=== PATIENT | female | born 1955 | race African-American/Black ===

== ENCOUNTER 2016-10-30 15:08 | Outpatient (CLI) | payer MEDICARE | END 2016-10-30 15:09 | disposition home or self-care (01) | DX: E03.9 Hypothyroidism, unspecified (principal) ==

== ENCOUNTER 2017-08-19 21:10 | Outpatient (CLI) | payer MEDICARE ==
[2017-08-19 19:40] LABS: BASOPHILS % (AUTO) 0.8 %; EOSINOPHILS # (AUTO) 0.3 10^3/uL (0.0-0.7); EOSINOPHILS % (AUTO) 4.9 %; HCT - HEMATOCRIT 33.9 % (37.0-47.0); HGB - HEMOGLOBIN 11.3 g/dL (12.0-16.0); LYMPHOCYTES # (AUTO) 1.4 10^3/uL (1.5-3.5); LYMPHOCYTES % (AUTO) 26.5 %; MEAN CORPUSCULAR HEMOGLOBIN 29.1 pg (27.0-31.0); MEAN CORPUSCULAR HGB CONC 33.4 g/dL (32.0-36.0); MEAN CORPUSCULAR VOLUME 87.2 fL (81.0-99.0); MEAN PLATELET VOLUME 8.8 fL (7.9-10.8); MONOCYTES # (AUTO) 0.3 10^3/uL (0.0-1.0); MONOCYTES % (AUTO) 6.6 %; NEUTROPHILS # (AUTO) 3.2 10^3/uL (1.5-6.6); NEUTROPHILS % (AUTO) 61.2 %; RED BLOOD COUNT 3.89 10^6/uL (4.20-5.40); RED CELL DISTRIBUTION WIDTH 12.8 % (12.0-15.0); UNCORRECTED WHITE BLOOD COUNT 5.3 x10^3/uL; WHITE BLOOD COUNT 5.3 x10^3/uL (4.8-10.8)
[2017-08-19 20:01] LABS: ALBUMIN/GLOBULIN RATIO 1.1 (1.0-2.2); BILIRUBIN,TOTAL 0.5 mg/dL (0.2-1.0); BUN - BLOOD UREA NITROGEN 19 mg/dL (6-20); CALCIUM 9.4 mg/dL (8.5-10.3); CARBON DIOXIDE - CO2 25 mmol/L (21-32); CHLORIDE 103 mmol/L (101-111); CHOLESTEROL 173 mg/dL; CREATININE 0.9 mg/dL (0.4-1.0); GFR - MDRD 77 (>89); GLUCOSE 97 mg/dL (70-100); HDL CHOLESTEROL 57 mg/dL; LDL/HDL RATIO 1.5 (<4.4); POTASSIUM 3.8 mmol/L (3.5-5.0); SODIUM 133 mmol/L (135-145); TRIGLYCERIDES 149 mg/dL; VLDL CHOLESTEROL 30 mg/dL
[2017-08-19 20:08] LABS: THYROID STIMULATING HORMONE < 0.08 uIU/mL (0.34-5.60)
== END 2017-08-19 21:11 | disposition home or self-care (01) ==
LOC: LAB.N 21:10
PROVIDERS: ATTEND Nurse Practitioner Gerontology
DX: E66.9 Obesity, unspecified (principal); E03.9 Hypothyroidism, unspecified; E78.5 Hyperlipidemia, unspecified; Z72.89 Other problems related to lifestyle
CPT/HCPCS: 36415; 80053; 80061; 84439; 84443; 85025; 86803

== ENCOUNTER 2020-09-02 09:05 | Outpatient (CLI) | payer MEDICARE | END 2020-09-02 09:06 | disposition critical access hospital (66) | LOC: EMS 09:05 | PROVIDERS: ATTEND Surgery | DX: R29.818 Other symptoms and signs involving the nervous system (principal) | CPT/HCPCS: A0425; A0429 ==

== ENCOUNTER 2020-09-02 09:50 | Emergency (ER) | payer MEDICARE ==
[2020-09-02] MEDS ORDERED: HYDROCORTISONE SUCCINATE 100 MG/2 ML VIAL IVP STA (10:03)
[2020-09-02] MEDS ORDERED: SODIUM CHLORIDE 0.9% 1,000 ML IV STA (10:03)
--- NOTE | 2020-09-02 10:06 | ED Physician Documentation ---
History of Present Illness - Stated complaint Stated Complaint: WEAKNESS - History obtained from History obtained from: Patient, EMS - Additonal information Additional information: 65-year-old woman with chronic pain, lives alone with a visiting caregiver twice a week. She has a history of hypothyroidism and takes hydrocortisone, she says it is for pain I am not really sure what it is for. She states for the last week she has been generally weak and today sat down on the toilet to urinate and could not get back up due to weakness. She called for help and EMS was summoned. They noticed her to be moderately modestly hypoglycemic in the 60s and she was given oral sucrose prior to arrival. She denies increased pain, headache, shortness of breath, chest pain. No fevers. She admits that she is inconsistent with her hydrocortisone dosing and is not sure when she last took it, potentially a few days ago. She knows that she is supposed to take it 3 times a day but states she generally only takes it twice a day. Review of Systems Ten Systems: 10 systems reviewed and negative Constitutional: denies: Fever, Chills Ears: denies: Loss of hearing, Ear pain Nose: reports: Rhinorrhea / runny nose Cardiac: denies: Chest pain / pressure, Palpitations Respiratory: denies: Dyspnea, Cough GI: denies: Abdominal Pain, Nausea, Vomiting PD PAST MEDICAL HISTORY - Past Medical History Cardiovascular: High cholesterol Respiratory: None Endocrine/Autoimmune: HyPOthyroidism GI: Hemorrhoids : None HEENT: Other Psych: Depression, Anxiety Musculoskeletal: Chronic back pain Derm: None - Present Medications Home Medications: Ambulatory Orders Medication Instructions Recorded Confirmed Hydrocortisone [Cortef] 5 mg PO DAILY 09/02/20 09/02/20 Levothyroxine [Synthroid] 88 mcg PO DAILY 09/02/20 09/02/20 Mupirocin Calcium [Mupirocin] 1 gm LUIS A TID #3 cream..g. 09/02/20 - Allergies Allergies/Adverse Reactions: Allergies Allergy/AdvReac Type Severity Reaction Status Date / Time Sulfa (Sulfonamide Allergy Unknown Verified 09/02/20 10:08 Antibiotics) PD ED PE NORMAL - Vitals Vital signs reviewed: Yes - General General: No acute distress, Other (She is constantly sniffling and has a crusty lesion inside the right nares. Mildly dry mucous membranes. She is alert and oriented to person place time and events but seems very slightly confused.) - Neck Neck: Supple, no meningeal sign, No bony TTP - Cardiac Cardiac: RRR, No murmur - Respiratory Respiratory: No respiratory distress, Clear bilaterally - Abdomen Abdomen: Normal bowel sounds, Soft, Non tender - Back Back: No CVA TTP, No spinal TTP - Derm Derm: Normal color, Warm and dry - Extremities Extremities: No deformity, No tenderness to palpate, Normal ROM s pain, Other (She is just able to raise either leg off the bed but cannot hold it up for more than a second.) - Neuro Neuro: Alert and oriented X 3, No sensory deficit, Normal speech Eye Opening: Spontaneous Motor: Obeys Commands Results - Vitals Vitals: Vital Signs - 24 hr 09/02/20 09/02/20 09/02/20 10:02 10:29 11:28 Temperature 36.0 C L Heart Rate 117 H 115 H 107 H Respiratory 15 19 20 Rate Blood Pressure 117/81 H 118/57 L 116/92 H O2 Saturation 100 100 100 09/02/20 09/02/20 12:08 13:43 Temperature 36.2 C L Heart Rate 107 H 103 H Respiratory 22 18 Rate Blood Pressure 115/77 108/81 H O2 Saturation 99 99 Oxygen O2 Source Room air - EKG (time done) 1009 Rate: Rate (enter#) (120) Rhythm: Sinus tachycardia Kemp: RAD Intervals: Normal NM, Prolonged QT QRS: Normal Ischemia: Normal ST segments - Labs Labs: Laboratory Tests 09/02/20 09/02/20 09/02/20 10:02 10:40 10:40 WBC 5.4 RBC 4.61 Hgb 13.2 Hct 41.5 MCV 90.0 MCH 28.6 MCHC 31.8 L RDW 13.0 Plt Count Not Reportable MPV 9.6 Neut # (Auto) 3.6 Lymph # (Auto) 1.3 L Cabell # (Auto) 0.4 Eos # (Auto) 0.1 Baso # (Auto) 0.0 Absolute Nucleated RBC 0.00 Nucleated RBC % 0.0 Platelet Morphology PLATELET CLUMPING Sodium Potassium Chloride Carbon Dioxide Anion Gap BUN Creatinine Estimated GFR (MDRD) Glucose Calcium Magnesium Total Bilirubin AST ALT Alkaline Phosphatase Total Protein Albumin Globulin Albumin/Globulin Ratio Lipase Nasal Adenovirus (PCR) NOT DETECTED Nasal B. parapertussis DNA (PCR) NOT DETECTED Nasal Coronavir 229E PCR NOT DETECTED Nasal Coronavir HKU1 PCR NOT DETECTED Nasal Coronavir NL63 PCR NOT DETECTED Nasal Coronavir OC43 PCR NOT DETECTED Nasal Enterovir/Rhinovir PCR DETECTED A Nasal Influenza B PCR NOT DETECTED Nasal Influenza A PCR NOT DETECTED Nasal Parainfluen 1 PCR NOT DETECTED Nasal Parainfluen 2 PCR NOT DETECTED Nasal Parainfluen 3 PCR NOT DETECTED Nasal Parainfluen 4 PCR NOT DETECTED Nasal RSV (PCR) NOT DETECTED Nasal Screen MRSA (PCR) POSITIVE A* Nasal B.pertussis DNA PCR NOT DETECTED Nasal C.pneumoniae (PCR) NOT DETECTED Luis A Human Metapneumo PCR NOT DETECTED Nasal M.pneumoniae (PCR) NOT DETECTED Nasal SARS-CoV-2 (PCR) NOT DETECTED 09/02/20 11:10 WBC RBC Hgb Hct MCV MCH MCHC RDW Plt Count MPV Neut # (Auto) Lymph # (Auto) Cabell # (Auto) Eos # (Auto) Baso # (Auto) Absolute Nucleated RBC Nucleated RBC % Platelet Morphology Sodium 138 Potassium 3.6 Chloride 105 Carbon Dioxide 22 Anion Gap 11.0 BUN 18 Creatinine 0.9 Estimated GFR (MDRD) 77 L Glucose 147 H Calcium 9.9 Magnesium 1.9 Total Bilirubin 1.4 H AST 30 ALT 19 Alkaline Phosphatase 49 Total Protein 7.3 Albumin 4.0 Globulin 3.3 Albumin/Globulin Ratio 1.2 Lipase 18 L Nasal Adenovirus (PCR) Nasal B. parapertussis DNA (PCR) Nasal Coronavir 229E PCR Nasal Coronavir HKU1 PCR Nasal Coronavir NL63 PCR Nasal Coronavir OC43 PCR Nasal Enterovir/Rhinovir PCR Nasal Influenza B PCR Nasal Influenza A PCR Nasal Parainfluen 1 PCR Nasal Parainfluen 2 PCR Nasal Parainfluen 3 PCR Nasal Parainfluen 4 PCR Nasal RSV (PCR) Nasal Screen MRSA (PCR) Nasal B.pertussis DNA PCR Nasal C.pneumoniae (PCR) Luis A Human Metapneumo PCR Nasal M.pneumoniae (PCR) Nasal SARS-CoV-2 (PCR) PD MEDICAL DECISION MAKING - ED course ED course: She was difficult for phlebotomy, I personally did an ultrasound guided blood draw from the left antecubital fossa drawing her blood. It was quite slow, explaining the platelet clumping. Her lab work was unremarkable except for finding of rhinovirus and crust nose c/w MRSA. No evidence of other/systemic infection. 65-year-old woman presents with modest hypoglycemia and weakness in the setting of having skipped 2 days worth of her chronic hydrocortisone. She was administered IV fluids and hydrocortisone here with resolution of her symptoms and passed a road test. 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 Comments: As discussed, it is imperative not to skip doses of your hydrocortisone, it causes exactly be symptoms, dizziness, low blood sugar. Return as needed. Follow-up with your primary care physician. We did note incidentally for a Covid test that she do not have Covid but you do have enterovirus and MRSA in your nose which I am giving you the nasal cream for.
[2020-09-02] MEDS ORDERED: DEXTROSE 10% 1,000 ML IV STA (10:10)
[2020-09-02] MEDS ORDERED: DEXTROSE 10% 1,000 ML IV SCH (11:00)
--- NOTE | 2020-09-02 11:06 | XRAY Report ---
PROCEDURE: Chest 1 View X-Ray INDICATIONS: Weakness TECHNIQUE: One view of the chest was acquired. COMPARISON: None FINDINGS: Surgical changes and devices: None. Lungs and pleura: No pleural effusions or pneumothorax. Lungs are clear. Mediastinum: Mediastinal contours appear normal. Heart size is normal. Bones and chest wall: No suspicious bony lesions. Overlying soft tissues appear unremarkable. IMPRESSION: No acute cardiopulmonary process demonstrated radiographically. Reviewed by: Oscar Muro MD on 09/02/2020 10:04 AM [facility] Approved by: Oscar Muro MD on 09/02/2020 10:04 AM [facility] Station ID: [id number]
[2020-09-02 11:18] LABS: BASOPHILS % (AUTO) 0.4 %; EOSINOPHILS # (AUTO) 0.1 10^3/uL (0.0-0.7); HGB - HEMOGLOBIN 13.2 g/dL (12.0-16.0); LYMPHOCYTES # (AUTO) 1.3 10^3/uL (1.5-3.5); LYMPHOCYTES % (AUTO) 24.8 %; MEAN CORPUSCULAR HEMOGLOBIN 28.6 pg (27.0-31.0); MEAN CORPUSCULAR HGB CONC 31.8 g/dL (32.0-36.0); MEAN PLATELET VOLUME 9.6 fL (7.9-10.8); MONOCYTES # (AUTO) 0.4 10^3/uL (0.0-1.0); MONOCYTES % (AUTO) 6.5 %; NEUTROPHILS # (AUTO) 3.6 10^3/uL (1.5-6.6); NEUTROPHILS % (AUTO) 65.9 %; RED BLOOD COUNT 4.61 10^6/uL (4.20-5.40); WHITE BLOOD COUNT 5.4 x10^3/uL (4.8-10.8)
[2020-09-02 11:32] LABS: ALBUMIN/GLOBULIN RATIO 1.2 (1.0-2.2); BILIRUBIN,TOTAL 1.4 mg/dL (0.2-1.0); CALCIUM 9.9 mg/dL (8.5-10.3); CREATININE 0.9 mg/dL (0.4-1.0); MAGNESIUM 1.9 mg/dL (1.7-2.8); TOTAL PROTEIN 7.3 g/dL (6.7-8.2)
[2020-09-02 11:39] LABS: PLATELET MORPHOLOGY PLATELET CLUMPING (NORMAL)
[2020-09-02 12:02] LABS: C. PNEUMONIAE- RESP PCR PANEL NOT DETECTED
[2020-09-02 14:07] VITALS: BP 100/76
[2020-09-02 15:08] LABS: GLUCOSE, URINE (UA) NEGATIVE (NEGATIVE); KETONES,URINE (UA) 15 mg/dL (NEGATIVE); LEUKOCYTE ESTERASE, URINE TRACE (NEGATIVE); NITRITE,URINE NEGATIVE (NEGATIVE); OCCULT BLOOD,URINE LARGE (NEGATIVE); PROTEIN,URINE TRACE mg/dL (NEGATIVE); UROBILINOGEN,URINE 2 E.U./dL (NORMAL)
[2020-09-02 15:11] LABS: CLARITY,URINE CLEAR (CLEAR)
[2020-09-02 15:12] LABS: BILIRUBIN,URINE NEGATIVE (NEGATIVE); ICTOTEST,URINE NEGATIVE
[2020-09-02 15:23] LABS: AMORPHOUS SEDIMENT,UR Moderate /LPF; BACTERIA,URINE None Seen /HPF (None Seen); RBC,URINE 0-5 /HPF (0-5); SQUAMOUS EPITHELIAL CELL,UR NONE SEEN (<= Few)
== END 2020-09-02 15:59 | disposition home or self-care (01) ==
LOC: EDUNIT# → ED 09:50
DX: E16.2 Hypoglycemia, unspecified (principal); R53.1 Weakness; T38.0X6A Underdosing of glucocorticoids and synthetic analogues, initial encounter; Z91.138 Patient's unintentional underdosing of medication regimen for other reason; J00 Acute nasopharyngitis [common cold]; B95.62 Methicillin resistant Staphylococcus aureus infection as the cause of diseases classified elsewhere; B97.89 Other viral agents as the cause of diseases classified elsewhere; Z20.828 Contact with and (suspected) exposure to other viral communicable diseases; R00.0 Tachycardia, unspecified; E03.9 Hypothyroidism, unspecified; G89.29 Other chronic pain; M54.9 Dorsalgia, unspecified
CPT/HCPCS: 0202U; 80053; 81001; 81003; 82803; 83605; 83690; 83735; 85025; 85610; 87040; 87086; 87640; 93005; 96361; 96374; 99284

== ENCOUNTER 2023-02-16 13:47 | Outpatient (CLI) | payer MEDICARE | END 2023-02-16 13:48 | disposition home or self-care (01) | LOC: LAB 13:47 | PROVIDERS: ATTEND Internal Medicine Endocrinology, Diabetes & Metabolism | DX: E03.8 Other specified hypothyroidism (principal) | CPT/HCPCS: 36415; 84439 ==

== ENCOUNTER 2023-05-18 15:23 | Outpatient (CLI) | payer MEDICARE | END 2023-05-18 23:59 | disposition critical access hospital (66) | LOC: EMS 15:23 | DX: R41.82 Altered mental status, unspecified (principal); R50.9 Fever, unspecified | CPT/HCPCS: A0425; A0429 ==

== ENCOUNTER 2023-05-18 15:41 | Inpatient (IN) | payer MEDICARE ==
[2023-05-18] MEDS ORDERED: ACETAMINOPHEN 650 MG SUPP PR STA (15:46)
[2023-05-18] MEDS ORDERED: SODIUM CHLORIDE 0.9% 1,000 ML IV STA ×2 (15:46→17:24)
--- NOTE | 2023-05-18 16:02 | ED Physician Documentation ---
History of Present Illness - Stated complaint Stated Complaint: AMS/FEVER - History obtained from History obtained from: EMS - Additonal information Additional information: Patient is a 68-year-old female with a history of a pituitary macroadenoma status post transsphenoidal resection in 2011 with secondary adrenal insufficiency and hypothyroidism presenting for evaluation of altered mental status and fever. Patient was last spoken to by a family friend yesterday morning and appeared to be at her usual self. Family been trying to reach her today but were unable to. EMS was then called and found her to be minimally responsive lying in her bed with smell of urine. She was found to be febrile. She is reportedly normally ambulatory and conversant and able to care for herself. She is only able to answer what her name is. History is limited as patient is not able to provide any history. She is supposed to be on hydrocortisone and thyroid medication. She follows with neurosurgery at the [facility]. Review of Systems Unable to obtain: AMS PD PAST MEDICAL HISTORY - Past Medical History Cardiovascular: High cholesterol Respiratory: None Endocrine/Autoimmune: HyPOthyroidism GI: Hemorrhoids : None HEENT: Other Psych: Depression, Anxiety Musculoskeletal: Chronic back pain Derm: None - Past Surgical History Past Surgical History: Yes - Present Medications Home Medications: Ambulatory Orders Medication Instructions Recorded Confirmed Hydrocortisone [Cortef] 5 mg PO DAILY 09/02/20 09/02/20 Levothyroxine [Synthroid] 88 mcg PO DAILY 09/02/20 09/02/20 Mupirocin Calcium [Mupirocin] 1 gm LUIS A TID #3 cream..g. 09/02/20 - Allergies Allergies/Adverse Reactions: Allergies Allergy/AdvReac Type Severity Reaction Status Date / Time Sulfa (Sulfonamide Allergy Unknown Verified 09/02/20 10:08 Antibiotics) - Social History Does the pt smoke?: No Smoking Status: Never smoker Does the pt drink ETOH?: No Does the pt have substance abuse?: No - Immunizations Immunizations are current?: Yes - POLST Patient has POLST: No PD ED PE NORMAL - General General: No acute distress, Well developed/nourished. No: Alert and oriented X 3 (Alert and oriented to person only) - HEENT HEENT: Atraumatic, PERRL - Neck Neck: Supple, no meningeal sign - Cardiac Cardiac: Other (Tachycardic, regular rhythm) - Respiratory Respiratory: No respiratory distress, Clear bilaterally - Abdomen Abdomen: Normal bowel sounds, Soft, Non tender, Non distended - Derm Derm: Warm and dry - Extremities Extremities: No deformity - Neuro Neuro: No motor deficit, Normal speech. No: Alert and oriented X 3 (Alert and oriented to person only) Eye Opening: Spontaneous Motor: Obeys Commands Verbal: Confused GCS Score: 14 Results - Vitals Vitals: Vital Signs - 24 hr 05/18/23 05/18/23 05/18/23 16:00 17:11 20:13 Temperature 39.0 C H 39.0 C H 37.6 C Heart Rate 123 H 119 H Respiratory 26 H 21 Rate Blood Pressure 118/84 H 130/81 H O2 Saturation 100 100 05/18/23 05/18/23 05/18/23 20:40 21:00 21:30 Temperature Heart Rate 110 H 105 H 100 Respiratory 23 15 15 Rate Blood Pressure 148/74 H 117/66 103/69 O2 Saturation 97 96 96 05/18/23 05/18/23 05/18/23 22:00 22:30 23:00 Temperature Heart Rate 97 99 93 Respiratory 173 H 15 17 Rate Blood Pressure 114/65 115/81 H 113/72 O2 Saturation 97 96 95 05/18/23 05/19/23 05/19/23 23:30 00:00 00:30 Temperature Heart Rate 92 97 93 Respiratory 11 L 22 19 Rate Blood Pressure 88/56 L 97/57 L 114/72 O2 Saturation 95 98 93 05/19/23 05/19/23 05/19/23 01:30 02:00 02:30 Temperature Heart Rate 82 83 79 Respiratory 12 16 16 Rate Blood Pressure 114/73 92/57 L 114/70 O2 Saturation 99 96 99 05/19/23 05/19/23 05/19/23 03:30 04:00 04:30 Temperature Heart Rate 87 80 84 Respiratory 24 16 16 Rate Blood Pressure 113/84 H 131/79 H 121/65 O2 Saturation 100 100 100 05/19/23 05/19/23 05:00 06:00 Temperature Heart Rate 84 87 Respiratory 16 16 Rate Blood Pressure 122/78 95/71 O2 Saturation 97 95 Oxygen O2 Source Room air - EKG (time done) 1702 EKG releavant findings:: EKG personally interpreted by author of this note. Relevant findings are: Rate 124, sinus tachycardia, significant motion artifact in numerous leads - Labs Labs: Laboratory Tests 05/18/23 05/18/23 05/18/23 16:40 16:40 16:40 WBC 7.6 RBC 4.67 Hgb 13.3 Hct 40.5 MCV 86.7 MCH 28.5 MCHC 32.8 RDW 13.2 Plt Count 161 MPV 9.6 Neut # (Auto) 5.7 Lymph # (Auto) 1.2 L Eddy # (Auto) 0.7 Eos # (Auto) 0.0 Baso # (Auto) 0.0 Absolute Nucleated RBC 0.00 Nucleated RBC % 0.0 Sodium 132 L Potassium 3.9 Chloride 97 L Carbon Dioxide 25 Anion Gap 10.0 BUN 19 Creatinine 1.1 Estimated GFR (MDRD) 60 L Glucose 102 Lactic Acid Calcium 9.7 Total Bilirubin 0.9 AST 48 H ALT 28 Alkaline Phosphatase 71 Total Creatine Kinase Troponin I High Sens 226.2 H* Total Protein 7.4 Albumin 4.1 Globulin 3.3 Albumin/Globulin Ratio 1.2 Lipase 11 TSH < 0.01 L Free T4 Direct 1.35 Urine Color Urine Clarity Urine pH Ur Specific Fillmore Urine Protein Urine Glucose (UA) Urine Ketones Urine Occult Blood Urine Nitrite Urine Bilirubin Urine Urobilinogen Ur Leukocyte Esterase Urine RBC Urine WBC Ur Squamous Epith Cells Amorphous Sediment Urine Bacteria Urine Casts Ur Microscopic Review Urine Culture Comments Nasal Adenovirus (PCR) Nasal B. parapertussis DNA (PCR) Nasal Coronavir 229E PCR Nasal Coronavir HKU1 PCR Nasal Coronavir NL63 PCR Nasal Coronavir OC43 PCR Nasal Enterovir/Rhinovir PCR Nasal Influenza B PCR Nasal Influenza A PCR Nasal Parainfluen 1 PCR Nasal Parainfluen 2 PCR Nasal Parainfluen 3 PCR Nasal Parainfluen 4 PCR Nasal RSV (PCR) Nasal B.pertussis DNA PCR Nasal C.pneumoniae (PCR) Luis A Human Metapneumo PCR Nasal M.pneumoniae (PCR) Nasal SARS-CoV-2 (PCR) Urine Opiates Screen Ur Oxycodone Screen Urine Methadone Screen Ur Propoxyphene Screen Ur Barbiturates Screen Ur Tricyclics Screen Ur Phencyclidine Scrn Ur Amphetamine Screen U Methamphetamines Scrn U Benzodiazepines Scrn Urine Cocaine Screen U Cannabinoids Screen Ethyl Alcohol < 10.0 05/18/23 05/18/23 05/18/23 16:40 16:40 16:45 WBC RBC Hgb Hct MCV MCH MCHC RDW Plt Count MPV Neut # (Auto) Lymph # (Auto) Eddy # (Auto) Eos # (Auto) Baso # (Auto) Absolute Nucleated RBC Nucleated RBC % Sodium Potassium Chloride Carbon Dioxide Anion Gap BUN Creatinine Estimated GFR (MDRD) Glucose Lactic Acid 1.7 Calcium Total Bilirubin AST ALT Alkaline Phosphatase Total Creatine Kinase 1359 H* Troponin I High Sens Total Protein Albumin Globulin Albumin/Globulin Ratio Lipase TSH Free T4 Direct Urine Color DARK YELLOW Urine Clarity HAZY Urine pH 5.0 Ur Specific [place]more >=1.030 H Urine Protein 30 H Urine Glucose (UA) NEGATIVE Urine Ketones 15 H Urine Occult Blood LARGE H Urine Nitrite NEGATIVE Urine Bilirubin NEGATIVE Urine Urobilinogen 1 (NORMAL) Ur Leukocyte Esterase NEGATIVE Urine RBC 6-10 H Urine WBC 0-3 Ur Squamous Epith Cells FEW Squamous Amorphous Sediment Few Urine Bacteria Few Urine Casts 0-2 Fine Granular Ur Microscopic Review INDICATED Urine Culture Comments NOT INDICATED Nasal Adenovirus (PCR) Nasal B. parapertussis DNA (PCR) Nasal Coronavir 229E PCR Nasal Coronavir HKU1 PCR Nasal Coronavir NL63 PCR Nasal Coronavir OC43 PCR Nasal Enterovir/Rhinovir PCR Nasal Influenza B PCR Nasal Influenza A PCR Nasal Parainfluen 1 PCR Nasal Parainfluen 2 PCR Nasal Parainfluen 3 PCR Nasal Parainfluen 4 PCR Nasal RSV (PCR) Nasal B.pertussis DNA PCR Nasal C.pneumoniae (PCR) Luis A Human Metapneumo PCR Nasal M.pneumoniae (PCR) Nasal SARS-CoV-2 (PCR) Urine Opiates Screen Ur Oxycodone Screen Urine Methadone Screen Ur Propoxyphene Screen Ur Barbiturates Screen Ur Tricyclics Screen Ur Phencyclidine Scrn Ur Amphetamine Screen U Methamphetamines Scrn U Benzodiazepines Scrn Urine Cocaine Screen U Cannabinoids Screen Ethyl Alcohol 05/18/23 05/18/23 05/18/23 16:45 17:14 18:15 WBC RBC Hgb Hct MCV MCH MCHC RDW Plt Count MPV Neut # (Auto) Lymph # (Auto) Eddy # (Auto) Eos # (Auto) Baso # (Auto) Absolute Nucleated RBC Nucleated RBC % Sodium Potassium Chloride Carbon Dioxide Anion Gap BUN Creatinine Estimated GFR (MDRD) Glucose Lactic Acid Calcium Total Bilirubin AST ALT Alkaline Phosphatase Total Creatine Kinase Troponin I High Sens 322.6 H* Total Protein Albumin Globulin Albumin/Globulin Ratio Lipase TSH Free T4 Direct Urine Color Urine Clarity Urine pH Ur Specific [place] Urine Protein Urine Glucose (UA) Urine Ketones Urine Occult Blood Urine Nitrite Urine Bilirubin Urine Urobilinogen Ur Leukocyte Esterase Urine RBC Urine WBC Ur Squamous Epith Cells Amorphous Sediment Urine Bacteria Urine Casts Ur Microscopic Review Urine Culture Comments Nasal Adenovirus (PCR) NOT DETECTED Nasal B. parapertussis DNA (PCR) NOT DETECTED Nasal Coronavir 229E PCR NOT DETECTED Nasal Coronavir HKU1 PCR NOT DETECTED Nasal Coronavir NL63 PCR NOT DETECTED Nasal Coronavir OC43 PCR NOT DETECTED Nasal Enterovir/Rhinovir PCR NOT DETECTED Nasal Influenza B PCR NOT DETECTED Nasal Influenza A PCR NOT DETECTED Nasal Parainfluen 1 PCR NOT DETECTED Nasal Parainfluen 2 PCR NOT DETECTED Nasal Parainfluen 3 PCR NOT DETECTED Nasal Parainfluen 4 PCR NOT DETECTED Nasal RSV (PCR) NOT DETECTED Nasal B.pertussis DNA PCR NOT DETECTED Nasal C.pneumoniae (PCR) NOT DETECTED Luis A Human Metapneumo PCR NOT DETECTED Nasal M.pneumoniae (PCR) NOT DETECTED Nasal SARS-CoV-2 (PCR) DETECTED A Urine Opiates Screen NEGATIVE Ur Oxycodone Screen NEGATIVE Urine Methadone Screen NEGATIVE Ur Propoxyphene Screen NEGATIVE Ur Barbiturates Screen NEGATIVE Ur Tricyclics Screen NEGATIVE Ur Phencyclidine Scrn NEGATIVE Ur Amphetamine Screen NEGATIVE U Methamphetamines Scrn NEGATIVE U Benzodiazepines Scrn NEGATIVE Urine Cocaine Screen NEGATIVE U Cannabinoids Screen NEGATIVE Ethyl Alcohol 05/18/23 21:27 WBC RBC Hgb Hct MCV MCH MCHC RDW Plt Count MPV Neut # (Auto) Lymph # (Auto) Eddy # (Auto) Eos # (Auto) Baso # (Auto) Absolute Nucleated RBC Nucleated RBC % Sodium Potassium Chloride Carbon Dioxide Anion Gap BUN Creatinine Estimated GFR (MDRD) Glucose Lactic Acid Calcium Total Bilirubin AST ALT Alkaline Phosphatase Total Creatine Kinase Troponin I High Sens 549.9 H* Total Protein Albumin Globulin Albumin/Globulin Ratio Lipase TSH Free T4 Direct Urine Color Urine Clarity Urine pH Ur Specific [place] Urine Protein Urine Glucose (UA) Urine Ketones Urine Occult Blood Urine Nitrite Urine Bilirubin Urine Urobilinogen Ur Leukocyte Esterase Urine RBC Urine WBC Ur Squamous Epith Cells Amorphous Sediment Urine Bacteria Urine Casts Ur Microscopic Review Urine Culture Comments Nasal Adenovirus (PCR) Nasal B. parapertussis DNA (PCR) Nasal Coronavir 229E PCR Nasal Coronavir HKU1 PCR Nasal Coronavir NL63 PCR Nasal Coronavir OC43 PCR Nasal Enterovir/Rhinovir PCR Nasal Influenza B PCR Nasal Influenza A PCR Nasal Parainfluen 1 PCR Nasal Parainfluen 2 PCR Nasal Parainfluen 3 PCR Nasal Parainfluen 4 PCR Nasal RSV (PCR) Nasal B.pertussis DNA PCR Nasal C.pneumoniae (PCR) Luis A Human Metapneumo PCR Nasal M.pneumoniae (PCR) Nasal SARS-CoV-2 (PCR) Urine Opiates Screen Ur Oxycodone Screen Urine Methadone Screen Ur Propoxyphene Screen Ur Barbiturates Screen Ur Tricyclics Screen Ur Phencyclidine Scrn Ur Amphetamine Screen U Methamphetamines Scrn U Benzodiazepines Scrn Urine Cocaine Screen U Cannabinoids Screen Ethyl Alcohol Procedures - Central Line - Major Central Line Preparation: Unable to obtain consent, Time out completed, Ultrasound used, Sterile prep and drape Central line location: Right Femoral Central line type: Triple lumen Central line aftercare: Chlorhexidine disc placed, Secured, Placement confirmed, No complications, Pt tolerated well PD Medical Decision Making - ED course Complexity details: reviewed results, re-evaluated patient ED course: Patient is a 68-year-old female with a history of a brain mass, adrenal insufficiency and hypothyroidism presenting with altered mental status and found to have a fever after being found at home. She was last seen more than 24 hours ago at her baseline. She last had contact with anyone yesterday. Patient is not able to provide any meaningful history. She is able to answer her name and identify caregiver in the room and is following commands and appears to be protecting her airway. Labs ordered for evaluation of altered mental status including CBC, chemistry, lactic, TSH, urine analysis, urine drug screen, troponin, respiratory swab. Chest x-ray which I reviewed is negative. Labs are significant for positive COVID status, elevated troponin. EKG is difficult to interpret on initial attempt as there is significant artifact.Elevated troponin could be demand ischemia related to fever, increased heart rate, sepsis and a repeat was obtained which is continue to increase a substantial amount.CT head shows a known pituitary mass that does not appear to be significantly changed from prior scans available through the [facility] system. CT abdomen and pelvis is pending and was ordered to evaluate for other possible causes of fever and altered mental status. Pt signed out at shift change to oncoming provider. CT A/P pending. Plan for transfer given rising troponins with unclear history. Pt was given 100mg Hydrocortisone for adrenal insufficiency. 1830 - Patient is slightly more responsive. She is able to recognize her caregiver July who is at the bedside and able to state her name. Departure - Departure Disposition: 02 Transfer Acute Care Hosp Clinical Impression: Altered mental status, Fever, COVID-19, History of adrenal insufficiency, Rhabdomyolysis, NSTEMI (non-ST elevated myocardial infarction), Pituitary adenoma Condition: Fair Forms: PCP List
[2023-05-18 16:56] LABS: BASOPHILS % (AUTO) 0.5 %; EOSINOPHILS % (AUTO) 0.1 %; HCT - HEMATOCRIT 40.5 % (37.0-47.0); HGB - HEMOGLOBIN 13.3 g/dL (12.0-16.0); LYMPHOCYTES # (AUTO) 1.2 10^3/uL (1.5-3.5); LYMPHOCYTES % (AUTO) 15.7 %; MEAN CORPUSCULAR HEMOGLOBIN 28.5 pg (27.0-31.0); MEAN CORPUSCULAR HGB CONC 32.8 g/dL (32.0-36.0); MEAN CORPUSCULAR VOLUME 86.7 fL (81.0-99.0); MEAN PLATELET VOLUME 9.6 fL (7.9-10.8); MONOCYTES # (AUTO) 0.7 10^3/uL (0.0-1.0); MONOCYTES % (AUTO) 8.9 %; NEUTROPHILS # (AUTO) 5.7 10^3/uL (1.5-6.6); NEUTROPHILS % (AUTO) 74.4 %; PLT - PLATELET COUNT 161 10^3/uL (130-450); RED BLOOD COUNT 4.67 10^6/uL (4.20-5.40); RED CELL DISTRIBUTION WIDTH 13.2 % (12.0-15.0); WHITE BLOOD COUNT 7.6 x10^3/uL (4.8-10.8)
[2023-05-18 17:06] LABS: MUDS CUTOFF CONCENTRATIONS CUTOFF CONC BELOW:
[2023-05-18 17:09] LABS: ALBUMIN 4.1 g/dL (3.2-5.5); ALBUMIN/GLOBULIN RATIO 1.2 (1.0-2.2); ALKALINE PHOSPHATASE 71 IU/L (42-121); ALT ALANINE AMINOTRANSFERASE 28 IU/L (10-60); AST ASPARTATE AMINOTRANSFERASE 48 IU/L (10-42); BILIRUBIN,TOTAL 0.9 mg/dL (0.2-1.0); BUN - BLOOD UREA NITROGEN 19 mg/dL (6-20); CALCIUM 9.7 mg/dL (8.5-10.3); CARBON DIOXIDE - CO2 25 mmol/L (21-32); CHLORIDE 97 mmol/L (101-111); CREATININE 1.1 mg/dL (0.6-1.3); ETOH - ETHANOL < 10.0 mg/dL; GFR - MDRD 60 (>89); GLUCOSE 102 mg/dL (74-104); LIPASE 11 U/L (11-82); POTASSIUM 3.9 mmol/L (3.5-4.5); SODIUM 132 mmol/L (135-145); TOTAL PROTEIN 7.4 g/dL (6.4-8.9)
[2023-05-18 17:13] LABS: GLUCOSE, URINE (UA) NEGATIVE (NEGATIVE); KETONES,URINE (UA) 15 mg/dL (NEGATIVE); LEUKOCYTE ESTERASE, URINE NEGATIVE (NEGATIVE); NITRITE,URINE NEGATIVE (NEGATIVE); OCCULT BLOOD,URINE LARGE (NEGATIVE); PROTEIN,URINE 30 mg/dL (NEGATIVE); UROBILINOGEN,URINE 1 (NORMAL) E.U./dL (NORMAL)
[2023-05-18 17:18] LABS: BILIRUBIN,URINE NEGATIVE (NEGATIVE); CLARITY,URINE HAZY (CLEAR); ICTOTEST,URINE NEGATIVE
[2023-05-18 17:24] LABS: THYROID STIMULATING HORMONE < 0.01 uIU/mL (0.34-5.60)
[2023-05-18 17:24] LABS: AMPHETAMINE SCREEN,URINE NEGATIVE (NEGATIVE); BARBITURATE SCREEN,UR NEGATIVE (NEGATIVE); BENZODIAZEPINES SCREEN, URINE NEGATIVE (NEGATIVE); COCAINE SCREEN URINE NEGATIVE (NEGATIVE); METHADONE SCREEN, URINE NEGATIVE (NEGATIVE); METHAMPHETAMINES SCREEN, URINE NEGATIVE (NEGATIVE); OPIATE SCREEN, URINE NEGATIVE (NEGATIVE); OXYCODONE SCREEN, URINE NEGATIVE (NEGATIVE); PROPOXYPHENE SCREEN, URINE NEGATIVE (NEGATIVE); THC CANNABINOID SCREEN, URINE NEGATIVE (NEGATIVE); TRICYCLIC ANTIDEPRESSANT,URINE NEGATIVE (NEGATIVE)
[2023-05-18 17:28] LABS: WBC,URINE 0-3 /HPF (0-5)
[2023-05-18 17:29] LABS: AMORPHOUS SEDIMENT,UR Few /LPF; BACTERIA,URINE Few /HPF (None Seen); CASTS, URINE 0-2 Fine Granular /LPF; SQUAMOUS EPITHELIAL CELL,UR FEW Squamous (<= Few)
--- NOTE | 2023-05-18 17:47 | XRAY Report ---
PROCEDURE: Chest 1 View X-Ray INDICATIONS: AMS/fever TECHNIQUE: One view of the chest was acquired. COMPARISON: Chest radiograph 09/02/2020. FINDINGS: Surgical changes and devices: None. Lungs and pleura: No pleural effusions or pneumothorax. Lungs are clear. Mediastinum: Mediastinal contours appear normal. Heart size is normal. Bones and chest wall: No suspicious bony lesions. Overlying soft tissues appear unremarkable. IMPRESSION: No acute cardiopulmonary process. Reviewed by: Charlee Salomon MD on 05/18/2023 5:46 PM PDT Approved by: Charlee Salomon MD on 05/18/2023 5:46 PM PDT Station ID: [id number]
[2023-05-18] MEDS ORDERED: HYDROCORTISONE SUCCINATE 100 MG/2 ML VIAL IVP STA (17:51)
[2023-05-18 18:11] LABS: CORONAVIRUS 229E-RESP PCR NOT DETECTED; CORONAVIRUS HKU1-RESP PCR NOT DETECTED; CORONAVIRUS NL63-RESP PCR NOT DETECTED; CORONAVIRUS OC43-RESP PCR NOT DETECTED
[2023-05-18 18:12] LABS: B. PARAPERTUSSIS- RESP PCR PAN NOT DETECTED; B. PERTUSSIS- RESP PCR PANEL NOT DETECTED; C. PNEUMONIAE- RESP PCR PANEL NOT DETECTED; HUMAN METAPNEUMOVIRUS NOT DETECTED; INFLUENZA A- RESP PCR PANEL NOT DETECTED; INFLUENZA B - RESP PCR PANEL NOT DETECTED; M. PNEUMONIAE- RESP PCR PANEL NOT DETECTED; PARAINFLUENZA VIRUS 1 NOT DETECTED; PARAINFLUENZA VIRUS 2 NOT DETECTED; PARAINFLUENZA VIRUS 3 NOT DETECTED; PARAINFLUENZA VIRUS 4 NOT DETECTED; RHINOVIRUS/ENTEROVIRUS NOT DETECTED; RSV- RESP PCR PANEL NOT DETECTED; SARS-CoV-2 -RESP PCR PANEL DETECTED
--- NOTE | 2023-05-18 18:51 | CT Report ---
PROCEDURE: HEAD WO INDICATIONS: AMS/history of brain tumor TECHNIQUE: Noncontrast 4.5 mm thick angled axial sections acquired from the foramen magnum to the vertex. For r adiation dose reduction, the following was used: automated exposure control, adjustment of mA and/or kV according to patient size. COMPARISON: Brain MRI 11/09/2011 report only, no images are available.. FINDINGS: Image quality: Excellent. CSF spaces: Mild mass effect on the left suprasellar cistern by suprasellar mass. Remainder of the b earl cisterns are patent. No extra-axial fluid collections. Ventricles are normal in size and shape . Brain: No midline shift. There is a hyperdense mass in the left suprasellar region measuring approx imately 2.1 x 1.8 x 2.3 cm. There is mild mass effect on the left aspect of the suprasellar cistern. No intracranial hemorrhage. No loss of portillo-white differentiation to suggest acute infarct. Periventr icular and deep white matter hypodensities are nonspecific, most consistent with chronic microvascula r ischemic changes. Skull and face: Calvarium and visualized facial bones are intact, without suspicious lesions. Sinuses: Visualized sinuses and mastoids are clear. IMPRESSION: 1. Left suprasellar mass measuring up to 2.3 cm with mild mass effect on the suprasellar cistern. Fin ding likely represents pituitary macroadenoma. Prior brain MRI report 11/09/2021 (no images available at time dictation) describes the mass as measuring up to 5 cm. Further evaluation with MRI can be con sidered. 2. No intracranial hemorrhage or acute infarct. Reviewed by: Charlee Salomon MD on 05/18/2023 6:50 PM PDT Approved by: Charlee Salomon MD on 05/18/2023 6:50 PM PDT Station ID: [id number]
[2023-05-18] MEDS ORDERED: iohexoL-300 100 ML VIAL IVP ONE (19:08)
--- NOTE | 2023-05-18 19:49 | CT Report ---
PROCEDURE: CT abdomen and pelvis with contrast INDICATIONS: fever/AMS TECHNIQUE: Helical axial CT of the abdomen and pelvis was obtained after intravenous contrast adminis tration and reformatted in multiple planes. For radiation dose reduction, the following was used: au tomated exposure control, adjustment of mA and/or kV according to patient size. Study image quality is limited by beam [place] artifact arising from the patient's arms deficient ove r the abdomen COMPARISON: None FINDINGS: Lower thorax: The lung bases are clear. Heart size normal. No hiatal hernia. Liver: Normal in size and attenuation. No contour deformity present. Biliary system: Layering calculi noted in the gallbladder. No inflammatory change present. Pancreas: Unremarkable without mass or inflammation evident. Spleen: Normal in size and density. Adrenals: Normal morphology and density. Reproductive system: Unremarkable as visualized. Urinary system: Normal renal size and attenuation. No renal calculi, hydronephrosis, or solid mass p resent. Urinary bladder unremarkable. Gastrointestinal system: The bowel appears unremarkable with no evidence of bowel obstruction or inf lammation. The stomach appears unremarkable. Large fecal bolus in the rectum Appendix: Normal appendix identified Peritoneal spaces: No mesenteric or retroperitoneal adenopathy. No free air. No free fluid. Vasculature: The IVC, aorta and iliac vasculature are unremarkable. Right femoral central venous bradley e noted in good position Abdominal wall: Abdominal wall is intact without evidence of ventral or inguinal hernias. Musculoskeletal: Normal bone mineralization. No acute fractures. Degenerative disc disease and arth ropathy IMPRESSION: No acute CT findings in the abdomen and pelvis. No abscess or inflammatory change. Cholelithiasis, and large fecal bolus in the rectum. Reviewed by: Abran Wang MD on 05/18/2023 6:48 PM [facility]DT Approved by: Abran Wang MD on 05/18/2023 6:48 PM AKDT Station ID: [id number]
[2023-05-18] MEDS ORDERED: KETOROLAC 30 MG/ML VIAL IVP STA (19:54)
--- NOTE | 2023-05-18 21:13 | ED Physician Documentation ---
ED Addendum - Addendum Addendum: 05/18/23 21:12 Repeat EKG: sinus tachycardia, 116 bpm, normal axis, no ST elevations nor depressions. Disagree with computer interpretation (ST and not atrial fibrillation) 05/19/23 08:54 On the overnight shift (05/18/23-05/19/23), patient was signed out to me from Dr. Calle. Please see her note for complete H+P. In brief, the patient had presented earlier in the day with fever, altered mental status. Noted to be tachycardic and febrile in the emergency department, with elevated troponin that increased on a 2-hour repeat. She was found to be COVID-positive; CT A/P result pending at the time of turnover of care. Per the radiologist reading, "no acute CT findings in the abdomen and pelvis. No abscess or inflammatory change." On my exam, the patient remains very confused. She tells me her first name, but all of my other questions including other orientation questions go unanswered. She is not following simple commands such as when I ask her to open her mouth. Patient's caregiver is in the room and confirms that her current mental status is nowhere close to patient's baseline, which is awake, alert, conversant but mildly confused. Patient is given IV Toradol that I ordered; this is given as antipyretic. Subsequently, patient defervesced and her tachycardia resolved. A third troponin level again shows up-trend. Her most recent EKG in the emergency department does not show any ST changes. Due to her ongoing confusion despite defervescence, and her uptrending troponins, she would benefit from further observation/testing in an inpatient setting. I discussed this case with on-call neurosurgery for [facility] (Dr. Junior Duncan). He was able to review previous records on this patient including a previous CT, and compared to [facility]'s CT (images were pushed to [facility]) he says the intracranial mass appears unchanged in size compared to previous study. Dr. Duncan does not feel that the mass is causing nor contributing to tonight's signs/symptoms. He does not feel the patient would need nor benefit from transfer to a facility that specifically has neurosurgical services at this time. Multiple other hospitals are all full; [facility] is considering accepting patient pending single-bed availability given COVID (+). Patient remained stable for the remainder of my shift with some low-normal blood pressure (90s SBP). Care of patient is turned back over to Dr. Calle at end of my shift.
[2023-05-18] MEDS ORDERED: LORazepam 2 MG/ML VIAL IVP STA (22:35)
[2023-05-19 07:43] LABS: BASOPHILS % (AUTO) 0.2 %; HCT - HEMATOCRIT 34.7 % (37.0-47.0); HGB - HEMOGLOBIN 11.3 g/dL (12.0-16.0); LYMPHOCYTES # (AUTO) 0.9 10^3/uL (1.5-3.5); LYMPHOCYTES % (AUTO) 14.1 %; MEAN CORPUSCULAR HEMOGLOBIN 28.2 pg (27.0-31.0); MEAN CORPUSCULAR HGB CONC 32.6 g/dL (32.0-36.0); MEAN CORPUSCULAR VOLUME 86.5 fL (81.0-99.0); MEAN PLATELET VOLUME 9.3 fL (7.9-10.8); MONOCYTES # (AUTO) 0.4 10^3/uL (0.0-1.0); MONOCYTES % (AUTO) 5.8 %; NEUTROPHILS % (AUTO) 79.7 %; PLT - PLATELET COUNT 141 10^3/uL (130-450); RED BLOOD COUNT 4.01 10^6/uL (4.20-5.40); RED CELL DISTRIBUTION WIDTH 12.9 % (12.0-15.0); WHITE BLOOD COUNT 6.3 x10^3/uL (4.8-10.8)
[2023-05-19 07:54] LABS: ALBUMIN 3.5 g/dL (3.2-5.5); ALBUMIN/GLOBULIN RATIO 1.2 (1.0-2.2); BILIRUBIN,TOTAL 0.6 mg/dL (0.2-1.0); CALCIUM 9.3 mg/dL (8.5-10.3); CREATININE 0.8 mg/dL (0.6-1.3); POTASSIUM 3.5 mmol/L (3.5-4.5); TOTAL PROTEIN 6.4 g/dL (6.4-8.9)
[2023-05-19] MEDS ORDERED: ASPIRIN CHEW 81 MG TABLET PO STA (08:02)
[2023-05-19] MEDS ORDERED: LEVOTHYROXINE 88 MCG TABLET PO STA (08:03)
[2023-05-19] MEDS ORDERED: ONDANSETRON 4 MG/2 ML VIAL IVP PRN (08:18)
[2023-05-19] MEDS ORDERED: SODIUM CHLORIDE 0.9% 1,000 ML IV STA (08:18)
[2023-05-19] MEDS ORDERED: ACETAMINOPHEN 500 MG TABLET PO PRN (08:18)
[2023-05-19 08:23] LABS: TROPONIN I HIGH SENSITIVITY 368.8 ng/L (2.3-14.8)
--- NOTE | 2023-05-19 08:51 | ED Physician Documentation ---
ED Addendum - Addendum Addendum: Patient boarding overnight in the emergency department awaiting transfer with concerns for possible NSTEMI due to rising troponins. Patient is markedly improved in her mentation this morning. She is sitting upright, able to hold a conversation. She knows that she is in a hospital and is unclear on the month but knows the year.She recalls speaking to her clinical nurse reviewer on Wednesday as she states she speaks to her every day. She does not recall feeling unwell in the past several days. She cannot give me much details about events on Wednesday and does not know what happened to her.She denies having chest pain today or in recent days that she can recall.Morning labs were repeated and CK is increasing to 5100. IV fluids have been ordered. I have continued stress dose steroids this morning for 4 doses.Troponin is coming down back to the 300 range. Patient has been started on Lovenox, aspirin. Metoprolol has been held due to soft blood pressures. Atorvastatin has also been ordered. Patient is able to tolerate p.o. intake today.Echo has been ordered and is pending. 05/19/23 11:01 D/W Dr. Lozoya and Dr. Dunne (Hospitalist) - Reviewed patient's presentation and work-up yesterday along with downtrending troponins but increasing CKs. Reviewed that patient's mentation is significantly improved today. They are agreeable to admitting the patient here at would be as her troponins are trending down and will continue to treat her medically. Departure - Departure Disposition: [facility] DC/Xfer Clinical Impression: Altered mental status, Fever, COVID-19, History of adrenal insufficiency, Rhabdomyolysis, NSTEMI (non-ST elevated myocardial infarction), Pituitary adenoma Condition: Fair
[2023-05-19] MEDS: HYDROCORTISONE SUCCINATE 100 MG/2 ML VIAL IVP SCH ×3 (08:57→20:23)
[2023-05-19] MEDS: ENOXAPARIN 100 MG/ML SYRINGE SUBQ SCH ×2 (09:00→20:23)
[2023-05-19] MEDS ORDERED: oxyCODONE 5 MG TABLET PO PRN (11:09)
[2023-05-19] MEDS ORDERED: ACETAMINOPHEN 325 MG TABLET PO PRN (11:09)
[2023-05-19] MEDS ORDERED: IBUPROFEN 400 MG TABLET PO PRN (11:09)
[2023-05-19] MEDS ORDERED: ONDANSETRON ODT 4 MG TABLET TL PRN (11:09)
[2023-05-19] MEDS ORDERED: SODIUM CHLORIDE FLUSH 0.9% 10 ML SYRINGE IVP PRN (11:09)
--- NOTE | 2023-05-19 12:37 | HISTORY & PHYSICAL EXAMINATION ---
Chief Complaint - Chief Complaint Chief Complaint: Altered mental status History of Present Illness - Admitted From Admitted From:: ED - History Obtained From Records Reviewed: Yes History obtained from: ED sign out and patient Exam Limitations: none - History of Present Illness HPI Comment/Other: A 68yo F with hx of Pituatary adenoma on hydrocortison, hypothyrodism, was brought in by EMS for altered mental status. Patient was last know well was Wednesday 2 days ago prior presentation, when she talked to his rand sewer. In the past two days, patient can not be reached by family. Family member called EMR to have a wellness check, patient was found to be on bed, confused, not conversational. Unsure if she was taking her home meds. In the ED, patient was found tachycardia HR 120, febrile peak at 39C, other vitals were within normal limits. Lab shows normal WBC, CK 1359, Troponin 252, COVID positive, CT chest and Abdomen unremarkable. EKG no acute ischemic changes. Patient was given iv fluid, resumed hydrocortison in the ED. over the night of stay in the ED, patient' s mental status gradually improved, however, CK trends up to 5K, Troponin peak to 500, then down to 368. Patient was able to report discomfort. She denies chest pain, SOB, or palpitation. Echo ordered in the ED. With trending down troponin, no EKG ischemic changes, no indication for cardiac cath or other invasive procedure. With proper care level at [facility] at this point, Patient is admitted to inpatient [facility]. History - Past Medical History Cardiovascular: reports: High cholesterol Respiratory: reports: None Neuro: reports: Other (Pituatary adenoma) Endocrine/Autoimmune: reports: HyPOthyroidism GI: reports: Hemorrhoids GRADES 1 THRU 5 TEACHER: reports: None : reports: None HEENT: reports: Other Psych: reports: Depression, Anxiety Musculoskeletal: reports: Chronic back pain Derm: reports: None MRSA Hx?: No - POLST Patient has POLST: No Meds/Allgy - Home Medications Home Medications: Ambulatory Orders Medication Instructions Recorded Confirmed Hydrocortisone [Cortef] 10 mg PO DAILY 09/02/20 05/19/23 Hydrocortisone [Cortef] 5 mg PO DAILY PM 05/19/23 05/19/23 Levothyroxine [Synthroid] 75 mcg PO QDAC 05/19/23 05/19/23 - Allergies Allergies/Adverse Reactions: Allergies Allergy/AdvReac Type Severity Reaction Status Date / Time Sulfa (Sulfonamide Allergy Unknown Verified 09/02/20 10:08 Antibiotics) Review of Systems - Constitutional Constitutional: reports: Fatigue, Weakness, Poor appetite - Eyes Eyes: denies: Blurred vision - Cardiovascular Cariovascular: denies: Chest pain, Exertional dyspnea - Respiratory Respiratory: denies: Cough, Wheezing - Gastrointestinal Gastrointestinal: denies: Abdominal pain, Abdominal distention - Genitourinary Genitourinary: denies: Dysuria, Frequency, Urgency - Musculoskeletal Musculoskeletal: denies: Muscle pain - Integumentary Integumentary: denies: Rash - Neurological Neurological: reports: General weakness Prior Level of Functionality: Patient reports she is independent on ADLs Exam - Vital Signs Reviewed Vital Signs: Yes Vital Signs: Vital Signs x48h Pulse Resp BP Pulse Ox 05/19/23 10:00 74 16 106/73 100 05/19/23 09:00 89 24 126/55 L 05/19/23 08:30 71 17 109/88 H 100 05/19/23 08:00 70 17 102/64 100 05/19/23 07:30 76 16 99 05/19/23 07:00 75 13 100 05/19/23 06:30 72 18 100/63 100 05/19/23 06:00 87 16 95/71 95 05/19/23 05:00 84 16 122/78 97 05/19/23 04:30 84 16 121/65 100 - Physical Exam General Appearance: positive: No acute distress Eyes Bilateral: positive: Normal inspection, PERRL ENT: positive: ENT inspection nml, Pharynx nml, No signs of dehydration Neck: positive: Nml inspection, Thyroid nml, No JVD, Trachea midline Respiratory: positive: Chest non-tender, No respiratory distress, Breath sounds nml Cardiovascular: positive: Regular rate & rhythm, No murmur, No gallop Peripheral Pulses: positive: 2+ Abdomen: positive: Non-tender, No organomegaly, Nml bowel sounds, No distention Skin: positive: Color nml, No rash, Warm, Dry Neurologic/Psychiatric: positive: Oriented x3, CN's nml (2-12), Weakness Conclusion/Plan - Problem List (1) Altered mental status Conclusion/Plan: Neuro check per shift Fall precaution Qualifiers: Altered mental status type: transient alteration of awareness Qualified Code(s): R40.4 - Transient alteration of awareness (2) Rhabdomyolysis Conclusion/Plan: iv fluid, monitoring renal function, CK levels Qualifiers: Encounter type: initial encounter (3) COVID-19 Conclusion/Plan: no indication for treatment at this point symptom treatment, antitussive monitoring check Covid-19 antigen, if positive or if fever reoccurs in the next 12hr, will consider antiviral (4) NSTEMI (non-ST elevated myocardial infarction) Conclusion/Plan: type II [place], troponin trends down, pending Echo, consider stress Echo tomorrow (5) Hypoglycemia Conclusion/Plan: likley due to poor oral intake in the past few days, encourage oral intake - Lab Results Fish Bones: 05/19/23 07:35 05/19/23 07:35 - EKG Results EKG Interpreted Independently: Yes
[2023-05-19] MEDS: SODIUM CHLORIDE FLUSH 0.9% 10 ML SYRINGE IVP SCH (15:28)
--- NOTE | 2023-05-19 15:32 | PHARMACY PROGRESS NOTE ---
- Best Possible Medication History Admit Date and Time: 05/19/23 1109 Processed by: Pharmacy Medication History completed: Yes Patient Interview: Pt unable to participate Secondary Source(s): Pharmacy records, Insurance records As the person ultimately responsible for medication therapy, providers are able to order a medication from an existing home medication list in [facility] via the "Reconcile Routine" prior to Confirmation of that medication by passport support manager. Such practice is discouraged except when the physician, in their clinical judgment, deems that a medical need exists for a medication without regard to previous use.
[2023-05-19] MEDS: guaiFENesin/DEXTROMETHORPHAN 10 ML UDC PO SCH ×2 (17:55→21:26)
[2023-05-19] MEDS: ATORVASTATIN 40 MG TABLET PO SCH (20:23)
[2023-05-20] MEDS: SODIUM CHLORIDE 0.9% 1,000 ML IV SCH ×4 (02:12→22:59)
[2023-05-20] MEDS: HYDROCORTISONE SUCCINATE 100 MG/2 ML VIAL IVP SCH (02:12)
[2023-05-20] MEDS: SODIUM CHLORIDE FLUSH 0.9% 10 ML SYRINGE IVP SCH ×4 (02:12→22:59)
[2023-05-20] MEDS: guaiFENesin/DEXTROMETHORPHAN 10 ML UDC PO SCH ×3 (06:36→19:55)
[2023-05-20] MEDS: PANTOPRAZOLE 40 MG TABLET PO SCH (06:37)
[2023-05-20] MEDS: LEVOTHYROXINE 88 MCG TABLET PO SCH (06:37)
--- NOTE | 2023-05-20 08:05 | PROVIDER PROGRESS NOTE ---
Assessment/Plan - Problem List (1) Altered mental status Qualifiers: Altered mental status type: transient alteration of awareness Qualified Code(s): R40.4 - Transient alteration of awareness Assessment/Plan: Mental status is back to her baseline. (2) Rhabdomyolysis Qualifiers: Encounter type: initial encounter Assessment/Plan: Increased CK level, Continue give IV fluid, monitoring renal function (3) COVID-19 Assessment/Plan: No cough today. No sign of respiratory distress, no oxygen needed. No antigen test available. Continue monitoring respiratory symptoms. Consider de-isolation per hospital policy (4) NSTEMI (non-ST elevated myocardial infarction) Assessment/Plan: Likely stress related myocardial injury, with trending down troponin , no further cardiac work-up is indicated Echocardiogram was ordered at time of admission, pending report (5) Hypoglycemia Assessment/Plan: Resolved Continue hypoglycemia precaution Encourage oral intake - Current Meds Current Meds: Current Medications Generic Name Dose Route Start Last Admin Trade Name Freq PRN Reason Stop Dose Admin Atorvastatin Calcium 80 mg 05/19/23 21:00 05/19/23 20:23 Atorvastatin 40 Mg Tablet PO 80 mg QPM SAMI Administration Enoxaparin Sodium 100 mg 05/19/23 07:30 05/19/23 20:23 Enoxaparin 100 Mg/Ml Syringe SUBQ 100 mg Q12H SAMI Administration Guaifenesin 10 ml 05/19/23 18:00 05/20/23 06:36 Guaifenesin/Dextromethorphan 10 Ml Udc PO 10 ml TID SAMI Administration Sodium Chloride 1,000 mls @ 150 mls/hr 05/20/23 02:00 05/20/23 02:12 Normal Saline 0.9% IV 150 mls/hr .Q6H40M SAMI Administration Levothyroxine Sodium 88 mcg 05/20/23 07:00 05/20/23 06:37 Levothyroxine 88 Mcg Tablet PO 88 mcg QDAC SAMI Administration Pantoprazole Sodium 40 mg 05/20/23 07:00 05/20/23 06:37 Pantoprazole 40 Mg Tablet PO 40 mg QDAC SAMI Administration Sodium Chloride 10 ml 05/19/23 17:00 05/20/23 02:12 Sodium Chloride Flush 0.9% 10 Ml Syringe IVP 10 ml 0100,0900,1700 SAMI Administration - Lab Result Fish Bone Diagrams: 05/20/23 09:15 08/31/23 09:15 - Additional Planning Condition/Complexity: Improved My Orders: My Active Orders 05/19/23 11:09 Activity Orders [RC] Q2HR IO [RC] IOSHIFT Incentive Spirometry - RT [RC] .tid Initiate Bowel Care Protocol [RC] .protocol Initiate Line Care Protocol [RC] QSHIFT Initiate Personal Care Protoco [RC] .protocol Oxygen Therapy [RC] .PRN Telemetry (24 Hour) [RC] Q4HR Vital Signs [RC] 0800,1600,0000 Acetaminophen [Tylenol] 650 mg PO Q4HR PRN Ibuprofen [Motrin] 400 mg PO Q4HR PRN Ondansetron Odt [Zofran Odt] 4 mg TL Q6HR PRN Sodium Chloride Flush 0.9% [Normal Saline Flush 0.9%] 10 ml IVP PRN PRN oxyCODONE [Roxicodone] 5 mg PO Q4HR PRN Code Status [OTHERS] Routine Condition of Patient [OTHERS] Routine DVT Prophylaxis [OTHERS] Routine 05/19/23 Lunch Cardiac Diet [DIET] Regular Diet [DIET] (Cancelled) 05/19/23 17:00 Sodium Chloride Flush 0.9% [Normal Saline Flush 0.9%] 10 ml IVP 0100,0900,1700 05/19/23 18:00 guaiFENesin/DEXTROMETHORPHAN [Robitussin Dm] 10 ml PO TID 05/20/23 05:00 BMP - BASIC METABOLIC PANEL [CHEM] DAILYLAB CBC [CBC - COMP BLD CT W/AUTO DIFF] [HEME] DAILYLAB CK- CREATINE KINASE [CHEM] DAILYLAB 05/20/23 07:00 Levothyroxine [Synthroid] 88 mcg PO QDAC 05/20/23 08:00 Hydrocortisone [Cortef] 5 mg PO DAILYWM 05/20/23 09:00 BNP - B-NATRIURETIC PEPTIDE [CHEM] DAILY TROPONIN I HIGH SENSITIVITY [CHEM] DAILY Enoxaparin [Lovenox] 40 mg SUBQ DAILY 05/21/23 05:00 BMP - BASIC METABOLIC PANEL [CHEM] DAILYLAB CBC [CBC - COMP BLD CT W/AUTO DIFF] [HEME] DAILYLAB CK- CREATINE KINASE [CHEM] DAILYLAB 05/21/23 09:00 TROPONIN I HIGH SENSITIVITY [CHEM] DAILY 05/22/23 05:00 BMP - BASIC METABOLIC PANEL [CHEM] DAILYLAB CBC [CBC - COMP BLD CT W/AUTO DIFF] [HEME] DAILYLAB CK- CREATINE KINASE [CHEM] DAILYLAB 05/23/23 05:00 BMP - BASIC METABOLIC PANEL [CHEM] DAILYLAB CBC [CBC - COMP BLD CT W/AUTO DIFF] [HEME] DAILYLAB 05/24/23 05:00 BMP - BASIC METABOLIC PANEL [CHEM] DAILYLAB CBC [CBC - COMP BLD CT W/AUTO DIFF] [HEME] DAILYLAB Plan Discussed with:: Patient, Family (Patient daughter [place] and patient's plumber cub) Time Spent: 31-60 minutes Subjective - Subjective Patient Reports: Feeling Better, Resting Comfortably (Patient reports she feels about her baseline status, denies cough, shortness of breath. She is able to recall her plumber cub's phone number, with clear mentation) Objective Vital Signs: Vital Signs - 24 hr 05/19/23 05/19/23 05/19/23 08:30 09:00 10:00 Temperature Heart Rate 71 89 74 Heart Rate [ Brachial] Heart Rate [ Monitoring electrodes] Respiratory 17 24 16 Rate Blood Pressure 109/88 H 126/55 L 106/73 Blood Pressure [Right Brachial artery] O2 Saturation 100 100 05/19/23 05/19/23 05/19/23 12:35 15:28 20:26 Temperature 36.5 C 36.6 C 36.9 C Heart Rate Heart Rate [ 83 76 Brachial] Heart Rate [ 81 Monitoring electrodes] Respiratory 18 18 16 Rate Blood Pressure Blood Pressure 113/62 117/67 106/59 L [Right Brachial artery] O2 Saturation 100 100 96 05/20/23 05/20/23 00:26 05:17 Temperature 36.5 C 36.5 C Heart Rate Heart Rate [ 77 82 Brachial] Heart Rate [ Monitoring electrodes] Respiratory 18 18 Rate Blood Pressure Blood Pressure 138/55 H 129/67 [Right Brachial artery] O2 Saturation 98 98 Oxygen O2 Source Room air I&O (Last 24 Hrs): Intake and Output Totals x24h 05/18/23 05/19/23 05/20/23 23:59 23:59 23:59 Intake Total 1999 1620 Output Total 1550 400 Balance 1999 70 -400 General: Alert, Oriented x3, No acute distress HEENT: PERRLA, EOMI Neck: Supple, No JVD Neuro: Alert, Non Focal, CN 2-12 Grossly Intact Cardiovascular: Regular rate, Normal S1, Normal S2 Respiratory: Chest non-tender, No respiratory distress, Breath sounds nml Abdomen: Normal bowel sounds Extremities: No clubbing, No edema - Results Results: Laboratory Results WBC 6.3 x10^3/uL (4.8-10.8) 05/19/23 07:35 RBC 4.01 10^6/uL (4.20-5.40) L 05/19/23 07:35 Hgb 11.3 g/dL (12.0-16.0) L 05/19/23 07:35 Hct 34.7 % (37.0-47.0) L 05/19/23 07:35 MCV 86.5 fL (81.0-99.0) 05/19/23 07:35 MCH 28.2 pg (27.0-31.0) 05/19/23 07:35 MCHC 32.6 g/dL (32.0-36.0) 05/19/23 07:35 RDW 12.9 % (12.0-15.0) 05/19/23 07:35 Plt Count 141 10^3/uL (130-450) 05/19/23 07:35 MPV 9.3 fL (7.9-10.8) 05/19/23 07:35 Neut # (Auto) 5.0 10^3/uL (1.5-6.6) 05/19/23 07:35 Lymph # (Auto) 0.9 10^3/uL (1.5-3.5) L 05/19/23 07:35 [place] # (Auto) 0.4 10^3/uL (0.0-1.0) 05/19/23 07:35 Eos # (Auto) 0.0 10^3/uL (0.0-0.7) 05/19/23 07:35 Baso # (Auto) 0.0 10^3/uL (0.0-0.1) 05/19/23 07:35 Absolute Nucleated RBC 0.00 x10^3/uL 05/19/23 07:35 Nucleated RBC % 0.0 /100WBC 05/19/23 07:35 Sodium 138 mmol/L (135-145) 05/19/23 07:35 Potassium 3.5 mmol/L (3.5-4.5) 05/19/23 07:35 Chloride 106 mmol/L (101-111) 05/19/23 07:35 Carbon Dioxide 26 mmol/L (21-32) 05/19/23 07:35 Anion Gap 6.0 (6-13) 05/19/23 07:35 BUN 14 mg/dL (6-20) 05/19/23 07:35 Creatinine 0.8 mg/dL (0.6-1.3) 05/19/23 07:35 Estimated GFR (MDRD) 87 (>89) L 05/19/23 07:35 Glucose 133 mg/dL (74-104) H 05/19/23 07:35 Lactic Acid 1.7 mmol/L (0.5-2.2) 05/18/23 16:40 Calcium 9.3 mg/dL (8.5-10.3) 05/19/23 07:35 Total Bilirubin 0.6 mg/dL (0.2-1.0) 05/19/23 07:35 AST 88 IU/L (10-42) H 05/19/23 07:35 ALT 38 IU/L (10-60) 05/19/23 07:35 Alkaline Phosphatase 59 IU/L (42-121) 05/19/23 07:35 Total Creatine Kinase 5100 IU/L (30-223) H* 05/19/23 07:35 Troponin I High Sens 368.8 ng/L (2.3-14.8) H* 05/19/23 07:35 Total Protein 6.4 g/dL (6.4-8.9) 05/19/23 07:35 Albumin 3.5 g/dL (3.2-5.5) 05/19/23 07:35 Globulin 2.9 g/dL (2.1-4.2) 05/19/23 07:35 Albumin/Globulin Ratio 1.2 (1.0-2.2) 05/19/23 07:35 Lipase 11 U/L (11-82) 05/19/23 07:35 TSH < 0.01 uIU/mL (0.34-5.60) L 05/18/23 16:40 Free T4 Direct 1.35 ng/dL (0.58-1.64) 05/18/23 16:40 Urine Color DARK YELLOW 05/18/23 16:45 Urine Clarity HAZY (CLEAR) 05/18/23 16:45 Urine pH 5.0 PH (5.0-7.5) 05/18/23 16:45 Ur Specific [place] >=1.030 (1.002-1.030) H 05/18/23 16:45 Urine Protein 30 mg/dL (NEGATIVE) H 05/18/23 16:45 Urine Glucose (UA) NEGATIVE mg/dL (NEGATIVE) 05/18/23 16:45 Urine Ketones 15 mg/dL (NEGATIVE) H 05/18/23 16:45 Urine Occult Blood LARGE (NEGATIVE) H 05/18/23 16:45 Urine Nitrite NEGATIVE (NEGATIVE) 05/18/23 16:45 Urine Bilirubin NEGATIVE (NEGATIVE) 05/18/23 16:45 Urine Urobilinogen 1 (NORMAL) E.U./dL (NORMAL) 05/18/23 16:45 Ur Leukocyte Esterase NEGATIVE (NEGATIVE) 05/18/23 16:45 Urine RBC 6-10 /HPF (0-5) H 05/18/23 16:45 Urine WBC 0-3 /HPF (0-5) 05/18/23 16:45 Ur Squamous Epith Cells FEW Squamous (<= Few) 05/18/23 16:45 Amorphous Sediment Few /LPF 05/18/23 16:45 Urine Bacteria Few /HPF (None Seen) 05/18/23 16:45 Urine Casts 0-2 Fine Granular /LPF 05/18/23 16:45 Ur Microscopic Review INDICATED 05/18/23 16:45 Urine Culture Comments NOT INDICATED 05/18/23 16:45 Nasal Adenovirus (PCR) NOT DETECTED 05/18/23 17:14 Nasal B. parapertussis DNA (PCR) NOT DETECTED 05/18/23 17:14 Nasal Coronavir 229E PCR NOT DETECTED 05/18/23 17:14 Nasal Coronavir HKU1 PCR NOT DETECTED 05/18/23 17:14 Nasal Coronavir NL63 PCR NOT DETECTED 05/18/23 17:14 Nasal Coronavir OC43 PCR NOT DETECTED 05/18/23 17:14 Nasal Enterovir/Rhinovir PCR NOT DETECTED 05/18/23 17:14 Nasal Influenza B PCR NOT DETECTED 05/18/23 17:14 Nasal Influenza A PCR NOT DETECTED 05/18/23 17:14 Nasal Parainfluen 1 PCR NOT DETECTED 05/18/23 17:14 Nasal Parainfluen 2 PCR NOT DETECTED 05/18/23 17:14 Nasal Parainfluen 3 PCR NOT DETECTED 05/18/23 17:14 Nasal Parainfluen 4 PCR NOT DETECTED 05/18/23 17:14 Nasal RSV (PCR) NOT DETECTED 05/18/23 17:14 Nasal B.pertussis DNA PCR NOT DETECTED 05/18/23 17:14 Nasal C.pneumoniae (PCR) NOT DETECTED 05/18/23 17:14 Cristiano Human Metapneumo PCR NOT DETECTED 05/18/23 17:14 Nasal M.pneumoniae (PCR) NOT DETECTED 05/18/23 17:14 Nasal SARS-CoV-2 (PCR) DETECTED A 05/18/23 17:14 Urine Opiates Screen NEGATIVE (NEGATIVE) 05/18/23 16:45 Ur Oxycodone Screen NEGATIVE (NEGATIVE) 05/18/23 16:45 Urine Methadone Screen NEGATIVE (NEGATIVE) 05/18/23 16:45 Ur Propoxyphene Screen NEGATIVE (NEGATIVE) 05/18/23 16:45 Ur Barbiturates Screen NEGATIVE (NEGATIVE) 05/18/23 16:45 Ur Tricyclics Screen NEGATIVE (NEGATIVE) 05/18/23 16:45 Ur Phencyclidine Scrn NEGATIVE (NEGATIVE) 05/18/23 16:45 Ur Amphetamine Screen NEGATIVE (NEGATIVE) 05/18/23 16:45 U Methamphetamines Scrn NEGATIVE (NEGATIVE) 05/18/23 16:45 U Benzodiazepines Scrn NEGATIVE (NEGATIVE) 05/18/23 16:45 Urine Cocaine Screen NEGATIVE (NEGATIVE) 05/18/23 16:45 U Cannabinoids Screen NEGATIVE (NEGATIVE) 05/18/23 16:45 Ethyl Alcohol < 10.0 mg/dL 05/18/23 16:40 - Procedures Procedures: Procedures COLONOSCOPY (07/30/14) ABX Reporting Has patient been on IV antibiotics over the past 48 hours?: No Current Medications - Current Medications Current Medications: Active Medications Acetaminophen (Acetaminophen 500 Mg Tablet) 1,000 mg PO Q6H PRN PRN Reason: Mild Pain Or Fever>38c(100.4f) Acetaminophen (Acetaminophen 325 Mg Tablet) 650 mg PO Q4HR PRN PRN Reason: Pain 1 to 4, or Fever Aspirin (Aspirin Chew 81 Mg Tablet) 81 mg PO DAILY [facility] Last Admin: 05/20/23 09:03 Dose: 81 mg Atorvastatin Calcium (Atorvastatin 40 Mg Tablet) 80 mg PO QPM [facility] Last Admin: 05/20/23 19:54 Dose: 80 mg Enoxaparin Sodium (Enoxaparin 40 Mg/0.4 Ml Syringe) 40 mg SUBQ DAILY [facility] Last Admin: 05/20/23 09:02 Dose: 40 mg Guaifenesin (Guaifenesin/Dextromethorphan 10 Ml Udc) 10 ml PO TID [facility] Last Admin: 05/20/23 19:55 Dose: 10 ml Hydrocortisone (Hydrocortisone 10 Mg Tablet) 5 mg PO DAILYWM [facility] Last Admin: 05/20/23 09:02 Dose: 5 mg Sodium Chloride (Normal Saline 0.9%) 1,000 mls @ 150 mls/hr IV .Q6H40M [facility] Last Infusion: 05/20/23 19:45 Dose: 150 mls/hr Ibuprofen (Ibuprofen 400 Mg Tablet) 400 mg PO Q4HR PRN PRN Reason: Pain 1 to 4 Levothyroxine Sodium (Levothyroxine 88 Mcg Tablet) 88 mcg PO QDAC [facility] Last Admin: 05/20/23 06:37 Dose: 88 mcg Ondansetron HCl (Ondansetron 4 Mg/2 Ml Vial) 4 mg IVP Q6HR PRN PRN Reason: Nausea / Vomiting Ondansetron HCl (Ondansetron Odt 4 Mg Tablet) 4 mg TL Q6HR PRN PRN Reason: Nausea / Vomiting Oxycodone HCl (Oxycodone 5 Mg Tablet) 5 mg PO Q4HR PRN PRN Reason: Pain 5 to 7 Pantoprazole Sodium (Pantoprazole 40 Mg Tablet) 40 mg PO QDAC [facility] Last Admin: 05/20/23 06:37 Dose: 40 mg Sodium Chloride (Sodium Chloride Flush 0.9% 10 Ml Syringe) 10 ml IVP PRN PRN PRN Reason: NEEDED PER PROVIDER ORDERS Sodium Chloride (Sodium Chloride Flush 0.9% 10 Ml Syringe) 10 ml IVP 0100,0900,1700 [facility] Last Admin: 05/20/23 19:55 Dose: 10 ml Hydrocortisone [Cortef] 10 mg PO DAILY 09/02/20 Hydrocortisone [Cortef] 5 mg PO DAILY PM 05/19/23 Levothyroxine [Synthroid] 75 mcg PO QDAC 05/19/23
[2023-05-20] MEDS: ENOXAPARIN 40 MG/0.4 ML SYRINGE SUBQ SCH (09:02)
[2023-05-20] MEDS: HYDROCORTISONE 10 MG TABLET PO SCH (09:02)
[2023-05-20] MEDS: ASPIRIN CHEW 81 MG TABLET PO SCH (09:03)
[2023-05-20] MEDS: ENOXAPARIN 100 MG/ML SYRINGE SUBQ SCH (09:23)
[2023-05-20 09:44] LABS: BASOPHILS % (AUTO) 0.2 %; HCT - HEMATOCRIT 35.1 % (37.0-47.0); HGB - HEMOGLOBIN 11.7 g/dL (12.0-16.0); LYMPHOCYTES # (AUTO) 1.4 10^3/uL (1.5-3.5); LYMPHOCYTES % (AUTO) 11.3 %; MEAN CORPUSCULAR HGB CONC 33.3 g/dL (32.0-36.0); MEAN CORPUSCULAR VOLUME 86.9 fL (81.0-99.0); MEAN PLATELET VOLUME 10.2 fL (7.9-10.8); MONOCYTES # (AUTO) 0.2 10^3/uL (0.0-1.0); MONOCYTES % (AUTO) 1.7 %; NEUTROPHILS # (AUTO) 10.4 10^3/uL (1.5-6.6); NEUTROPHILS % (AUTO) 86.1 %; PLT - PLATELET COUNT 168 10^3/uL (130-450); RED BLOOD COUNT 4.04 10^6/uL (4.20-5.40); RED CELL DISTRIBUTION WIDTH 13.2 % (12.0-15.0)
[2023-05-20 09:57] LABS: CREATININE 0.7 mg/dL (0.6-1.3); POTASSIUM 3.3 mmol/L (3.5-4.5)
[2023-05-20] MEDS: ATORVASTATIN 40 MG TABLET PO SCH (19:54)
[2023-05-21 05:20] LABS: BASOPHILS % (AUTO) 0.1 %; HCT - HEMATOCRIT 30.3 % (37.0-47.0); HGB - HEMOGLOBIN 9.7 g/dL (12.0-16.0); LYMPHOCYTES # (AUTO) 1.8 10^3/uL (1.5-3.5); LYMPHOCYTES % (AUTO) 20.6 %; MEAN CORPUSCULAR HEMOGLOBIN 28.3 pg (27.0-31.0); MEAN CORPUSCULAR VOLUME 88.3 fL (81.0-99.0); MEAN PLATELET VOLUME 10.6 fL (7.9-10.8); MONOCYTES # (AUTO) 0.3 10^3/uL (0.0-1.0); MONOCYTES % (AUTO) 2.9 %; NEUTROPHILS # (AUTO) 6.4 10^3/uL (1.5-6.6); PLT - PLATELET COUNT 142 10^3/uL (130-450); RED BLOOD COUNT 3.43 10^6/uL (4.20-5.40); RED CELL DISTRIBUTION WIDTH 13.8 % (12.0-15.0); WHITE BLOOD COUNT 8.5 x10^3/uL (4.8-10.8)
[2023-05-21 05:46] LABS: CALCIUM 8.4 mg/dL (8.5-10.3); CREATININE 0.7 mg/dL (0.6-1.3); POTASSIUM 3.2 mmol/L (3.5-4.5)
[2023-05-21] MEDS: SODIUM CHLORIDE 0.9% 1,000 ML IV SCH (05:49)
[2023-05-21] MEDS: guaiFENesin/DEXTROMETHORPHAN 10 ML UDC PO SCH ×3 (05:50→22:14)
[2023-05-21] MEDS: PANTOPRAZOLE 40 MG TABLET PO SCH (05:55)
[2023-05-21] MEDS: LEVOTHYROXINE 88 MCG TABLET PO SCH (05:55)
[2023-05-21] MEDS: ASPIRIN CHEW 81 MG TABLET PO SCH (08:35)
[2023-05-21] MEDS: HYDROCORTISONE 10 MG TABLET PO SCH (08:35)
[2023-05-21] MEDS: SODIUM CHLORIDE FLUSH 0.9% 10 ML SYRINGE IVP SCH ×3 (08:35→23:20)
[2023-05-21] MEDS: ENOXAPARIN 40 MG/0.4 ML SYRINGE SUBQ SCH (08:35)
[2023-05-21] MEDS ORDERED: POTASSIUM CHLORIDE 10 MEQ CAPSULE PO ONE (10:00)
[2023-05-21] MEDS ORDERED: SODIUM CHLORIDE 0.9% 1,000 ML IV SCH (11:49)
--- NOTE | 2023-05-21 12:01 | PROVIDER PROGRESS NOTE ---
Assessment/Plan - Problem List (1) Rhabdomyolysis Qualifiers: Encounter type: subsequent encounter Assessment/Plan: Increased CK level, has been declining daily (all labs reviewed) Plan: Continue to give IV fluids. I will decrease rate from 125 cc/hr down to 60 cc/hr Follow CK and BMP Remove right femoral central line, change to peripheral IV Assess with activity later today, when femoral line removed, as she may need evaluation with PT and OT before discharge (2) COVID-19 Assessment/Plan: No cough. No sign of respiratory distress, no oxygen has been needed. No antigen test available. Plan: Continue monitoring respiratory symptoms. Consider de-isolation per hospital policy (3) Type 2 [place] Assessment/Plan: Likely stress related myocardial injury, with trending down troponins. Echocardiogram was done and showed a normal LVEF Plan: No further cardiac work-up is indicated I will cancel her daily baby aspirin and her nightly Lipitor 80 mm (4) Pituitary adenoma Assessment/Plan: Presumably this is why she takes hydrocortisone at home. She has been ordered to get hydrocortisone 5 mg daily here Plan: Continue this plan (5) Hypoglycemia Assessment/Plan: RESOLVED Plan: Continue hypoglycemia precaution Encourage oral intake (6) Altered mental status Qualifiers: Altered mental status type: transient alteration of awareness Qualified Cod e(s): R40.4 - Transient alteration of awareness Assessment/Plan: RESOLVED Mental status is back to her baseline. - Current Meds Current Meds: Current Medications Generic Name Dose Route Start Last Admin Trade Name Freq PRN Reason Stop Dose Admin Enoxaparin Sodium 40 mg 05/20/23 09:00 05/21/23 08:35 Enoxaparin 40 Mg/0.4 Ml Syringe SUBQ 40 mg DAILY SAMI Administration Guaifenesin 10 ml 05/19/23 18:00 05/21/23 05:50 Guaifenesin/Dextromethorphan 10 Ml Udc PO 10 ml TID SAMI Administration Hydrocortisone 5 mg 05/20/23 08:00 05/21/23 08:35 Hydrocortisone 10 Mg Tablet PO 5 mg DAILYWM SAMI Administration Levothyroxine Sodium 88 mcg 05/20/23 07:00 05/21/23 05:55 Levothyroxine 88 Mcg Tablet PO 88 mcg QDAC SAMI Administration Sodium Chloride 10 ml 05/19/23 17:00 05/21/23 08:35 Sodium Chloride Flush 0.9% 10 Ml Syringe IVP 10 ml 0100,0900,1700 [facility] Administration - Lab Result Fish Bone Diagrams: 05/21/23 04:28 05/21/23 04:28 - Additional Planning My Orders: My Active Orders 05/21/23 08:09 Central Line Discontinuation [RC] .ONCE IV Insert [RC] ONCE 05/21/23 08:10 Miscellaenous Nursing Order [RC] ONCE 05/21/23 11:49 Sodium Chloride 0.9% [Normal Saline 0.9%] 1,000 ml IV 60 mls/hr 05/22/23 07:00 Pantoprazole [Protonix] 40 mg PO QDAC 05/22/23 09:00 Aspirin Chewable [[facility] Aspirin] 81 mg PO DAILY Subjective - Subjective Patient Reports: Feeling Better Objective Vital Signs: Vital Signs - 24 hr 05/20/23 05/20/23 05/21/23 13:09 15:30 00:00 Temperature 36.5 C 36.6 C 36.7 C Heart Rate [ 78 69 92 Brachial] Respiratory 18 18 18 Rate Blood Pressure 130/57 L 117/56 L 113/55 L [Right Brachial artery] O2 Saturation 98 99 99 05/21/23 08:32 Temperature 36.7 C Heart Rate [ 77 Brachial] Respiratory 20 Rate Blood Pressure 115/68 [Right Brachial artery] O2 Saturation 98 Oxygen O2 Source Room air I&O (Last 24 Hrs): Intake and Output Totals x24h 05/19/23 05/20/23 05/21/23 23:59 23:59 23:59 Intake Total 1620 3397.5 1320 Output Total 1550 1450 650 Balance 70 1947.5 670 General: Alert (seen remotely), Oriented x3 Neck: Supple Neuro: Alert, Non Focal Cardiovascular: Regular rate Respiratory: No respiratory distress Abdomen: No tenderness Extremities: No edema - Results Results: Laboratory Results WBC 8.5 x10^3/uL (4.8-10.8) 05/21/23 04:28 RBC 3.43 10^6/uL (4.20-5.40) L 05/21/23 04:28 Hgb 9.7 g/dL (12.0-16.0) L 05/21/23 04:28 Hct 30.3 % (37.0-47.0) L 05/21/23 04:28 MCV 88.3 fL (81.0-99.0) 05/21/23 04:28 MCH 28.3 pg (27.0-31.0) 05/21/23 04:28 MCHC 32.0 g/dL (32.0-36.0) 05/21/23 04:28 RDW 13.8 % (12.0-15.0) 05/21/23 04:28 Plt Count 142 10^3/uL (130-450) 05/21/23 04:28 MPV 10.6 fL (7.9-10.8) 05/21/23 04:28 Neut # (Auto) 6.4 10^3/uL (1.5-6.6) 05/21/23 04:28 Lymph # (Auto) 1.8 10^3/uL (1.5-3.5) 05/21/23 04:28 [place] # (Auto) 0.3 10^3/uL (0.0-1.0) 05/21/23 04:28 Eos # (Auto) 0.0 10^3/uL (0.0-0.7) 05/21/23 04:28 Baso # (Auto) 0.0 10^3/uL (0.0-0.1) 05/21/23 04:28 Absolute Nucleated RBC 0.00 x10^3/uL 05/21/23 04:28 Nucleated RBC % 0.0 /100WBC 05/21/23 04:28 Sodium 140 mmol/L (135-145) 05/21/23 04:28 Potassium 3.2 mmol/L (3.5-4.5) L 05/21/23 04:28 Chloride 112 mmol/L (101-111) H 05/21/23 04:28 Carbon Dioxide 27 mmol/L (21-32) 05/21/23 04:28 Anion Gap 1.0 (6-13) L 05/21/23 04:28 BUN 15 mg/dL (6-20) 05/21/23 04:28 Creatinine 0.7 mg/dL (0.6-1.3) 05/21/23 04:28 Estimated GFR (MDRD) 101 (>89) 05/21/23 04:28 Glucose 162 mg/dL (74-104) H 05/21/23 04:28 Lactic Acid 1.7 mmol/L (0.5-2.2) 05/18/23 16:40 Calcium 8.4 mg/dL (8.5-10.3) L 05/21/23 04:28 Total Bilirubin 0.6 mg/dL (0.2-1.0) 05/19/23 07:35 AST 88 IU/L (10-42) H 05/19/23 07:35 ALT 38 IU/L (10-60) 05/19/23 07:35 Alkaline Phosphatase 59 IU/L (42-121) 05/19/23 07:35 Total Creatine Kinase 2833 IU/L (30-223) H* 05/21/23 04:28 Troponin I High Sens 111.2 ng/L (2.3-14.8) H* 05/21/23 09:03 B-Natriuretic Peptide 119 pg/mL (5-100) H 05/20/23 09:15 Total Protein 6.4 g/dL (6.4-8.9) 05/19/23 07:35 Albumin 3.5 g/dL (3.2-5.5) 05/19/23 07:35 Globulin 2.9 g/dL (2.1-4.2) 05/19/23 07:35 Albumin/Globulin Ratio 1.2 (1.0-2.2) 05/19/23 07:35 Lipase 11 U/L (11-82) 05/19/23 07:35 TSH < 0.01 uIU/mL (0.34-5.60) L 05/18/23 16:40 Free T4 Direct 1.35 ng/dL (0.58-1.64) 05/18/23 16:40 Urine Color DARK YELLOW 05/18/23 16:45 Urine Clarity HAZY (CLEAR) 05/18/23 16:45 Urine pH 5.0 PH (5.0-7.5) 05/18/23 16:45 Ur Specific [employer] >=1.030 (1.002-1.030) H 05/18/23 16:45 Urine Protein 30 mg/dL (NEGATIVE) H 05/18/23 16:45 Urine Glucose (UA) NEGATIVE mg/dL (NEGATIVE) 05/18/23 16:45 Urine Ketones 15 mg/dL (NEGATIVE) H 05/18/23 16:45 Urine Occult Blood LARGE (NEGATIVE) H 05/18/23 16:45 Urine Nitrite NEGATIVE (NEGATIVE) 05/18/23 16:45 Urine Bilirubin NEGATIVE (NEGATIVE) 05/18/23 16:45 Urine Urobilinogen 1 (NORMAL) E.U./dL (NORMAL) 05/18/23 16:45 Ur Leukocyte Esterase NEGATIVE (NEGATIVE) 05/18/23 16:45 Urine RBC 6-10 /HPF (0-5) H 05/18/23 16:45 Urine WBC 0-3 /HPF (0-5) 05/18/23 16:45 Ur Squamous Epith Cells FEW Squamous (<= Few) 05/18/23 16:45 Amorphous Sediment Few /LPF 05/18/23 16:45 Urine Bacteria Few /HPF (None Seen) 05/18/23 16:45 Urine Casts 0-2 Fine Granular /LPF 05/18/23 16:45 Ur Microscopic Review INDICATED 05/18/23 16:45 Urine Culture Comments NOT INDICATED 05/18/23 16:45 Nasal Adenovirus (PCR) NOT DETECTED 05/18/23 17:14 Nasal B. parapertussis DNA (PCR) NOT DETECTED 05/18/23 17:14 Nasal Coronavir 229E PCR NOT DETECTED 05/18/23 17:14 Nasal Coronavir HKU1 PCR NOT DETECTED 05/18/23 17:14 Nasal Coronavir NL63 PCR NOT DETECTED 05/18/23 17:14 Nasal Coronavir OC43 PCR NOT DETECTED 05/18/23 17:14 Nasal Enterovir/Rhinovir PCR NOT DETECTED 05/18/23 17:14 Nasal Influenza B PCR NOT DETECTED 05/18/23 17:14 Nasal Influenza A PCR NOT DETECTED 05/18/23 17:14 Nasal Parainfluen 1 PCR NOT DETECTED 05/18/23 17:14 Nasal Parainfluen 2 PCR NOT DETECTED 05/18/23 17:14 Nasal Parainfluen 3 PCR NOT DETECTED 05/18/23 17:14 Nasal Parainfluen 4 PCR NOT DETECTED 05/18/23 17:14 Nasal RSV (PCR) NOT DETECTED 05/18/23 17:14 Nasal B.pertussis DNA PCR NOT DETECTED 05/18/23 17:14 Nasal C.pneumoniae (PCR) NOT DETECTED 05/18/23 17:14 Cristiano Human Metapneumo PCR NOT DETECTED 05/18/23 17:14 Nasal M.pneumoniae (PCR) NOT DETECTED 05/18/23 17:14 Nasal SARS-CoV-2 (PCR) DETECTED A 05/18/23 17:14 Urine Opiates Screen NEGATIVE (NEGATIVE) 05/18/23 16:45 Ur Oxycodone Screen NEGATIVE (NEGATIVE) 05/18/23 16:45 Urine Methadone Screen NEGATIVE (NEGATIVE) 05/18/23 16:45 Ur Propoxyphene Screen NEGATIVE (NEGATIVE) 05/18/23 16:45 Ur Barbiturates Screen NEGATIVE (NEGATIVE) 05/18/23 16:45 Ur Tricyclics Screen NEGATIVE (NEGATIVE) 05/18/23 16:45 Ur Phencyclidine Scrn NEGATIVE (NEGATIVE) 05/18/23 16:45 Ur Amphetamine Screen NEGATIVE (NEGATIVE) 05/18/23 16:45 U Methamphetamines Scrn NEGATIVE (NEGATIVE) 05/18/23 16:45 U Benzodiazepines Scrn NEGATIVE (NEGATIVE) 05/18/23 16:45 Urine Cocaine Screen NEGATIVE (NEGATIVE) 05/18/23 16:45 U Cannabinoids Screen NEGATIVE (NEGATIVE) 05/18/23 16:45 Ethyl Alcohol < 10.0 mg/dL 05/18/23 16:40 - Procedures Procedures: Procedures COLONOSCOPY (07/30/14)
[2023-05-21] MEDS ORDERED: ATORVASTATIN 40 MG TABLET PO SCH (21:00)
[2023-05-22] MEDS: LEVOTHYROXINE 88 MCG TABLET PO SCH (06:39)
[2023-05-22] MEDS: guaiFENesin/DEXTROMETHORPHAN 10 ML UDC PO SCH (06:39)
[2023-05-22] MEDS ORDERED: PANTOPRAZOLE 40 MG TABLET PO SCH (07:00)
[2023-05-22] MEDS: HYDROCORTISONE 10 MG TABLET PO SCH (08:46)
[2023-05-22] MEDS: ENOXAPARIN 40 MG/0.4 ML SYRINGE SUBQ SCH (08:46)
[2023-05-22] MEDS: SODIUM CHLORIDE FLUSH 0.9% 10 ML SYRINGE IVP SCH (08:47)
[2023-05-22] MEDS ORDERED: ASPIRIN CHEW 81 MG TABLET PO SCH (09:00)
[2023-05-22 09:32] VITALS: O2SAT 99
[2023-05-22 11:18] LABS: BASOPHILS % (AUTO) 0.2 %; EOSINOPHILS # (AUTO) 0.1 10^3/uL (0.0-0.7); EOSINOPHILS % (AUTO) 1.8 %; HCT - HEMATOCRIT 34.4 % (37.0-47.0); LYMPHOCYTES # (AUTO) 1.9 10^3/uL (1.5-3.5); LYMPHOCYTES % (AUTO) 34.8 %; MEAN CORPUSCULAR HEMOGLOBIN 28.1 pg (27.0-31.0); MEAN CORPUSCULAR VOLUME 87.8 fL (81.0-99.0); MEAN PLATELET VOLUME 9.5 fL (7.9-10.8); MONOCYTES # (AUTO) 0.3 10^3/uL (0.0-1.0); MONOCYTES % (AUTO) 5.1 %; NEUTROPHILS # (AUTO) 3.2 10^3/uL (1.5-6.6); NEUTROPHILS % (AUTO) 57.6 %; PLT - PLATELET COUNT 149 10^3/uL (130-450); RED BLOOD COUNT 3.92 10^6/uL (4.20-5.40); RED CELL DISTRIBUTION WIDTH 13.7 % (12.0-15.0); WHITE BLOOD COUNT 5.5 x10^3/uL (4.8-10.8)
[2023-05-22 11:30] LABS: CALCIUM 8.8 mg/dL (8.5-10.3); CREATININE 0.7 mg/dL (0.6-1.3); POTASSIUM 3.4 mmol/L (3.5-4.5)
--- NOTE | 2023-05-22 12:25 | Discharge Plan ---
Discharge Plan Problem Reviewed?: Yes Disposition: Home Health Service Condition: Fair Diet: Regular Activity Restrictions: Activity as Tolerated Shower Restrictions: No Driving Restrictions: Yes Assistance Devices: Walker Weight Bearing: Full Weight Instruction Topics: Rhabdomyolysis Health Concerns: You were hospitalized to treat severe weakness. You had fallen and that caused muscle breakdown, which is called rhabdomyolysis. You needed IV fluids to treat this rhabdomyolysis so it would not cause kidney failure. You also tested COVID-positive, but you did not need specific anti-viral treatment since your symptoms were mild. Yesterday when the large IV was taken out of the vein in your leg and a smaller IV was put in your arm, which then blocked off anyway, you have managed to hydrate ypurself adequately by "forcing" oral hydration. Therefore, you are being discharged home today, and strongly advised to continue to force yourself to drink liquids. These liquids should include electrolyte- containing liquids like broths or Gatorade or juices. You may also drink water, but not just water. You need the electrolytes. You are encouraged to salt your food and to eat a banana a day. You also need more caregiving help at home. A referral has been sent for a Home Health agency to provide you with a bath aide, also to give you in-home Physical Therapy and Occupational Therapy. We also learned that your [employer] is arranging for more help for you in your house, from other people. Please resume all the usual pre-hospital medications that you always take. Because of having COVID, you are advised to stay in isolation for a total of 10 days from the time that you tested positive, or from when your symptoms began. You may also do in-home COVID nasal testing, and come out of isolation when you test negative. Plan of Treatment: As above. Care Goals: Improvement in symptoms and stabilization are the goals. Assessment: Patient understands and is agreeable with the plan. Additional Instructions or Follow Up instructions: If you have new or worsening symptoms, call your primary care provider for advice, or come to the ER. You should have an appointment to see your primary care provider in the next 1 to 2 weeks, for hospital follow-up visit. Follow-Up Care: Home Health - PT, Home Health - OT No Smoking: If you smoke, Please STOP! Call for help. Follow-up with: Christina Barkley MD [Primary Care Provider] -
--- NOTE | 2023-05-22 12:32 | DISCHARGE SUMMARY ---
Discharge Summary Discharge Date: 05/22/23 Discharging Provider: Dr Tasha Kumar Primary Care Provider: Dr Christina Barkley Condition at Discharge: Fair Discharge Disposition: Home Health Service - ALLERGIES Allergies/Adverse Reactions: Allergies Allergy/AdvReac Type Severity Reaction Status Date / Time Sulfa (Sulfonamide Allergy Unknown Verified 09/02/20 10:08 Antibiotics) - MEDICATIONS Home Medications: Ambulatory Orders Medication Instructions Recorded Confirmed Hydrocortisone [Cortef] 10 mg PO DAILY 09/02/20 05/19/23 Hydrocortisone [Cortef] 5 mg PO DAILY PM 05/19/23 05/19/23 Levothyroxine [Synthroid] 75 mcg PO QDAC 05/19/23 05/19/23 - LABS Result Diagrams: 05/22/23 11:14 05/22/23 11:14
--- NOTE | 2023-05-22 12:39 | DISCHARGE SUMMARY ---
Discharge Summary Admit Date: 05/19/23 Discharge Date: 05/22/23 Discharging Provider: Dr Tasha Kumar Primary Care Provider: Dr Christina Barkley Condition at Discharge: Fair Discharge Disposition: Home Health Service - [facility] History of Present Illness: This is a 68yo -algerian female with hx of Pituatary adenoma on hydrocortisone, and hypothyrodism on synthroid, who was brought in by EMS for altered mental status. Patient was last know well was Wednesday 2 days ago prior p resentation, when she talked to her laborer tan house. In the past two days, patient could not be reached by family. Family member called EMT to have a wellness check, and patient was found to be on bed, confused, not conversational. Unsure if she was taking her home meds. In the ED, patient was found tachycardia HR 120, febrile peak at 39C, other vitals were within normal limits. Lab shows normal WBC, CK 1359, Troponin 252, COVID positive, CT chest and Abdomen CT unremarkable. EKG no acute ischemic changes. Patient was given iv fluid, resumed hydrocortisone in the ED. Over the night of stay in the ED, patient' s mental status gradually improved, however, CK trending up to 5K, Troponin peak to 500, then down to 368. Patient was able to report discomfort. She denies chest pain, SOB, or palpitation. Echo ordered in the ED. With trending down troponin, no EKG ischemic changes, no indication for cardiac cath or other invasive procedure. With proper care level at [facility] at this point, patient is admitted to inpatient [facility] to treat Rhabdomyolysis and the cause of her fever and confusion. - HOSPITAL COURSE Hospital Course: (1) Altered mental status Her mental status returned back to her baseline by the 2nd day, after iv fluids were given and steroids were restarted. Her laborer tan house spoke with her social worker masters, reported that the laborer tan house was arranging for more help for her in her home. The patient also qualified for Home Health and a referral was sent to get in-home PT, OT and a bath aide. (2) Rhabdomyolysis She received several days of IV fluids, first via large bore femoral central line then a peripheral IV. CK levels were 1359>> 5100>> 5158>> 2822>> 1284. Her renal function remained normal. She was discharged home and advised to continue aggressive oral hydration. (3) COVID-19 She had no cough, no sign of respiratory distress, no oxygen was needed. She was kept in respiratory isolation. At discharge, she was advised to do in-home testing and self-isolation when tests come back negative or to follow the guidelines of remaining in isolation from 10 days of when her test showed she was positive. (4) Hypoglycemia Her glu was 102, and may have added to the confusion. It was likley due to poor oral intake in the past few days. We encouraged oral intake. There were no more episodes of hypoglycemia. (5) Type 2 [place] Troponins were checked, peaked at 500. Her EKG showed no ischemic changes. An Echocardiogram was done and showed a normal LVEF. Therefore, she likely had a stress related myocardial injury. No further cardiac work-up was indicated. (6) Pituitary adenoma This is why she takes Hydrocortisone and thyroid meds at home, which were continued here. - ALLERGIES Allergies/Adverse Reactions: Allergies Allergy/AdvReac Type Severity Reaction Status Date / Time Sulfa (Sulfonamide Allergy Unknown Verified 09/02/20 10:08 Antibiotics) - MEDICATIONS Home Medications: Ambulatory Orders Medication Instructions Recorded Confirmed Hydrocortisone [Cortef] 10 mg PO DAILY 09/02/20 05/19/23 Hydrocortisone [Cortef] 5 mg PO DAILY PM 05/19/23 05/19/23 Levothyroxine [Synthroid] 75 mcg PO QDAC 05/19/23 05/19/23 - PHYSICAL EXAM AT DISCHARGE General Appearance: positive: No acute distress, Alert ENT: positive: ENT inspection nml, No signs of dehydration Neck: positive: Nml inspection, No JVD Respiratory: positive: No respiratory distress Cardiovascular: positive: Regular rate & rhythm Abdomen: positive: No distention Skin: positive: Warm, Dry Extremities: positive: Non-tender Neurologic/Psychiatric: positive: Oriented x3, Motor nml - LABS Result Diagrams: 05/22/23 11:14 05/22/23 11:14 - DIAGNOSTIC IMAGING Diagnostic Imaging Results: Final report reviewed - FOLLOW UP Follow Up: See PCP in 1 to 2 weeks for hospital follow-up visit. - TIME SPENT Time Spent in Discharge (Minutes): 40
[2023-05-22 15:40] VITALS: BP 134/71
== END 2023-05-22 16:00 | disposition home health service (06) | DRG 557 ==
LOC: ED 15:41 → MS2 05-19 11:09
PROVIDERS: ADMIT Internal Medicine; ATTEND Internal Medicine
DX: I21.4 Non-ST elevation (NSTEMI) myocardial infarction (principal); M62.82 Rhabdomyolysis; I21.A1 Myocardial infarction type 2; R77.8 Other specified abnormalities of plasma proteins; U07.1 COVID-19; R41.82 Altered mental status, unspecified; R00.0 Tachycardia, unspecified; E16.2 Hypoglycemia, unspecified; D35.2 Benign neoplasm of pituitary gland; E03.9 Hypothyroidism, unspecified; E78.00 Pure hypercholesterolemia, unspecified; F32.A Depression, unspecified; F41.9 Anxiety disorder, unspecified; G89.29 Other chronic pain; M54.9 Dorsalgia, unspecified; R53.83 Other fatigue; R53.1 Weakness; Z79.890 Hormone replacement therapy; Z79.899 Other long term (current) drug therapy; Z88.2 Allergy status to sulfonamides
CPT/HCPCS: 36415; 36556; 70450; 71045; 74177; 80048; 80053; 80306; 81001; 82550; 83605; 83690; 83880; 84439; 84443; 84484; 85025; 87040; 87633; 93005; 93306; 97162; 97530; 99285; A9270; G0480; J1650; J2060; Q9967; 80320; 81003; 87086

== ENCOUNTER 2024-12-29 10:47 | Observation (INO) ==
--- NOTE | 2024-12-29 11:03 | ED Physician Documentation ---
PD HPI ALTERED MENTAL STATUS Stated complaint Stated Complaint: AMS Chief complaint Chief Complaint: Neuro History obtained from History obtained from: Patient, EMS and Caregiver History of Present Illness Timing - onset: Yesterday (Caregivers at [facility] stated she seems somnolent and altered today. Her family member subsequently said visiting her yesterday she seemed in coordinate and fumbly and tired.) Timing - duration: Days (1) Timing - details: Abrupt onset (just since yesterday, increasing.) Quality / character: Less responsive and Confused Associated symptoms: No Fever, Headache, Cough, NVD or Focal weakness Contributing factors: Other (Recent surgery on November 20 for pituitary adenoma at [facility]. His recovering at [facility] [place]. Has been doing okay there with ambulation and good interaction. Symptoms now just since yesterday.) Basline status: Alert and oriented X 3 and Ambulatory Treatment [employer]: Accucheck Similar symptoms before: Has not had sx before Recently seen: Surgery Meds/Allgy Home Medications Ambulatory Orders Medication Instructions Recorded Confirmed hydrocortisone 5 mg tablet (Cortef) 10 mg PO DAILY 09/02/20 05/19/23 hydrocortisone 5 mg tablet (Cortef) 5 mg PO DAILY PM 05/19/23 05/19/23 levothyroxine 75 mcg tablet 75 mcg PO QDAC 05/19/23 05/19/23 Allergies Allergies Allergy/AdvReac Type Severity Reaction Status Date / Time Sulfa (Sulfonamide Allergy Unknown Verified 12/29/24 10:59 Antibiotics) PFSH Active Problems All Active Problems (Updated 12/29/24 @ 14:24 by Hilario Metz MD) Status post craniotomy (Acute) Dilantin toxicity (Acute) AMS (altered mental status) (Acute) Rhabdomyolysis (Acute) History of adrenal insufficiency (Acute) Chest pain, atypical (Acute) Hypoglycemia (Acute) Weak (Acute) Steroid withdrawal syndrome (Acute) Altered mental status (Acute) Fever (Acute) COVID-19 (Acute) NSTEMI (non-ST elevated myocardial infarction) (Acute) Pituitary adenoma (Acute) Social History Social History Smoking Status: Never smoker Do you dip or chew tobacco?: No Do you vape?: No Relationship: Level: Assisted Do you feel safe in your home environment?: Yes Suffered physical, verbal, emotional, or financial abuse?: No History of Abuse: No POLST Patient has POLST: No Exam Exam Vital Signs: Vital Signs x48h Temp Pulse Resp BP Pulse Ox 12/29/24 12:54 65 18 104/53 L 95 12/29/24 10:47 36.7 C 94 15 111/62 98 Constitutional normal general appearance, no apparent distress and average body habitus [facility] head/scalp atraumatic (healing surgical wound frontal aspect) and oral mucous membranes abnormal (dry) Eyes nystagmus noted (horizontal) (mild) Neck/C-Spine supple and no meningeal signs Lymph no lymphadenopathy noted Respiratory normal respiratory effort and clear to auscultation bilaterally Cardiovascular normal heart rate noted and regular rhythm noted Gastrointestinal abdomen soft to palpation and nontender to palpation Neurology no focal motor deficit noted and no sensory deficits noted Psychiatry mental status abnormal (somnolent), orientation abnormal (disoriented to time), thought process normal and psychomotor activity normal Skin skin color normal Results Vitals Vitals: Vital Signs - 24 hr 12/29/24 10:47 12/29/24 11:10 12/29/24 12:54 Temperature 36.7 C Pulse Rate 94 65 Respiratory Rate 15 18 Blood Pressure 111/62 104/53 L O2 Saturation 98 95 O2 Source Room air Room air Pain Intensity 0 0 0 Oxygen O2 Source Room air Labs Labs: Laboratory Tests 12/29/24 11:09 WBC 4.2 L RBC 3.55 L Hgb 10.4 L Hct 32.8 L MCV 92.4 MCH 29.3 MCHC 31.7 L RDW 14.8 Plt Count 227 MPV 8.7 Neut # (Auto) 1.9 Lymph # (Auto) 1.7 Holmes # (Auto) 0.3 Eos # (Auto) 0.3 Baso # (Auto) 0.0 Absolute Nucleated RBC 0.00 Nucleated RBC % 0.0 Sodium 137 Potassium 3.7 Chloride 101 Carbon Dioxide 31 Anion Gap 5.0 L BUN 18 Creatinine 0.9 Estimated GFR (MDRD) 76 L Glucose 93 Calcium 9.4 Phosphorus 2.9 Magnesium 2.1 Total Bilirubin 0.3 AST 31 ALT 49 Alkaline Phosphatase 75 Total Protein 7.1 Albumin 4.0 Globulin 3.1 Albumin/Globulin Ratio 1.3 Lipase 11 Phenytoin 38.2 PD Medical Decision Making ED course Complexity details: reviewed results (The patient is on Keppra and Dilantin. No reported recent change in doses. Keppra level is a send out. Dilantin level returned at 38 which is in the potentially toxic range with expectation of nystagmus and sedation. This can corroborate her symptoms.), re-evaluated patient (Undulating somewhat alert but sleepy. Seemed unwilling to take water p.o. Be concern for ongoing hydration which should be the main factor for helping reduce symptoms. Time to metabolize the Dilantin as well but hydration is [place]. Talked with hospitalist.), considered differential (The patient is without any fever. Consider infectious cause or flu in combination with medications and recent surgery. Also consider complications from surgery such as bleeding or swelling. She is a bit far out for postoperative infection but can check blood count. Can check electrolytes and med) and d/w senior erp consultant (Spoke with on-call neurosurgery at [facility] who reviewed the images from today and compared to postoperative. The impression was imaging today seems appropriate and without any concern.) Discharge Plan Discharge Patient Disposition: ED Place in Observation Condition: Stable Clinical Impression: AMS (altered mental status), Dilantin toxicity, Status post craniotomy Interventions: ED Admission Assessment Last Done: 12/29/24 15:10
--- OUTSIDE RECORDS SUMMARY | 2024-12-29 11:04 | EXTERNAL MEDICAL SUMMARY RPT | Continuity of Care Document ---
Author Organization [facility] Address [address] [place] [address] Phone Problems date description facility 2024-12-19 06:40 Hypo-osmolality and hyponatremi a [facility] 2024-12-19 08:01 Hypo-osmolality and hyponatremi a [facility] 2024-12-26 07:07 Other specified hypothyroidism [facility] 2024-12-26 07:12 Other specified hypothyroidism [facility] 2024-12-26 08:22 Other specified hypothyroidism [facility] 2024-12-26 08:23 Other specified hypothyroidism [facility] 2024-12-26 08:24 Other specified hypothyroidism [facility] 2024-12-28 09:08 Other specified hypothyroidism [facility] Results/Labs test date facility value unit notes Result panel 1 CREATININE 2024-12-19 06:26 [facility] 0.7 mg/dl As of March 2023 testing method has changed, this may include reference ranges. GFR - MDRD 2024-12-19 06:26 [facility] 101 (missin g) Social History date description facility
[2024-12-29 11:13] LABS: EOSINOPHILS # (AUTO) 0.3 10^3/uL (0.0-0.7); EOSINOPHILS % (AUTO) 6.2 %; HCT - HEMATOCRIT 32.8 % (37.0-47.0); HGB - HEMOGLOBIN 10.4 g/dL (12.0-16.0); LYMPHOCYTES # (AUTO) 1.7 10^3/uL (1.5-3.5); MEAN CORPUSCULAR HEMOGLOBIN 29.3 pg (27.0-31.0); MEAN CORPUSCULAR HGB CONC 31.7 g/dL (32.0-36.0); MEAN CORPUSCULAR VOLUME 92.4 fL (81.0-99.0); MEAN PLATELET VOLUME 8.7 fL (7.9-10.8); MONOCYTES # (AUTO) 0.3 10^3/uL (0.0-1.0); MONOCYTES % (AUTO) 6.9 %; NEUTROPHILS # (AUTO) 1.9 10^3/uL (1.5-6.6); NEUTROPHILS % (AUTO) 45.7 %; PLT - PLATELET COUNT 227 10^3/uL (130-450); RED BLOOD COUNT 3.55 10^6/uL (4.20-5.40); RED CELL DISTRIBUTION WIDTH 14.8 % (12.0-15.0); WHITE BLOOD COUNT 4.2 x10^3/uL (4.8-10.8)
[2024-12-29 11:26] LABS: ALBUMIN/GLOBULIN RATIO 1.3 (1.0-2.2); BILIRUBIN,TOTAL 0.3 mg/dL (0.2-1.0); CALCIUM 9.4 mg/dL (8.5-10.3); CREATININE 0.9 mg/dL (0.6-1.3); MAGNESIUM 2.1 mg/dL (1.7-2.3); PHENYTOIN (DILANTIN) 38.2 ug/mL; PHOSPHORUS 2.9 mg/dL (2.5-5.0); POTASSIUM 3.7 mmol/L (3.5-4.5); TOTAL PROTEIN 7.1 g/dL (6.4-8.9)
--- NOTE | 2024-12-29 11:46 | CT Report ---
PROCEDURE: CT Head WO INDICATIONS: AMS; recent pituitary tumor surgery TECHNIQUE: Noncontrast 4.5 mm thick angled axial sections acquired from the foramen magnum to the vertex. For r adiation dose reduction, the following was used: automated exposure control, adjustment of mA and/or kV according to patient size. COMPARISON: CT head 05/18/2023. FINDINGS: Image quality: Excellent. CSF spaces: Basal cisterns are patent. No extra-axial fluid collections. Ventricles are symmetric in size and shape. Brain: Mass again seen in the suprasellar cistern, which measures approximately 2.1 x 1.6 cm in axia l dimensions (04/01). The more inferior portion of the mass is not as well seen and may have been rese cted. This appears hyperdense (49 Hounsfield units). No recent contrast-enhanced CT is seen. Hypodens ities in the subcortical and periventricular white matter are most commonly seen in setting of chroni c microvascular ischemic changes. Age-related cerebral and cerebellar volume loss is seen. Skull and face: Postsurgical changes are seen from left pterional craniotomy. Right frontal caren hol e cranial defect. Postsurgical changes in the nasal cavity and sagittal. Sinuses: Visualized sinuses and mastoids are clear. IMPRESSION: Postsurgical changes from interval left craniotomy. Markedly reduced size of the suprasellar mass see n on prior CT. 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 Stable size of the ventricles. Reviewed by: Junior Mcwilliams MD on 12/29/2024 11:45 AM PDT Approved by: Junior Mcwilliams MD on 12/29/2024 11:45 AM PDT Station ID: [id number]
[2024-12-29] MEDS: SODIUM CHLORIDE 0.9% 1,000 ML IV STA (12:24)
[2024-12-29] MEDS: CHARCOAL ACTIVATED 25 GM/120 ML BOTTLE PO STA (14:08)
[2024-12-29] MEDS ORDERED: ONDANSETRON ODT 4 MG TABLET TL PRN (15:20)
[2024-12-29] MEDS ORDERED: ACETAMINOPHEN 325 MG TABLET PO PRN (15:20)
[2024-12-29] MEDS ORDERED: oxyCODONE 5 MG TABLET PO PRN (15:20)
[2024-12-29] MEDS ORDERED: SODIUM CHLORIDE FLUSH 0.9% 10 ML SYRINGE IVP PRN (15:20)
[2024-12-29] MEDS ORDERED: ONDANSETRON 4 MG/2 ML VIAL IVP PRN (15:20)
[2024-12-29] MEDS: LACTATED RINGERS 1,000 ML IV STA (15:30)
[2024-12-29 15:50] VITALS: O2SAT 98
[2024-12-29] MEDS: SODIUM CHLORIDE FLUSH 0.9% 10 ML SYRINGE IVP SCH (16:29)
--- NOTE | 2024-12-29 17:17 | HISTORY & PHYSICAL EXAMINATION ---
Chief Complaint Chief Complaint Chief Complaint: ams History of Present Illness Admitted From Admitted From:: [facility] History Obtained From Records Reviewed: [facility] History obtained from: ER MD Exam Limitations: sedation History of Present Illness HPI Comment/Other: This is a 69-year-old female who has a history of disability due to pituitary adenoma. She is followed by the [facility], multidisciplinary pituitary program clinic which is part of the [facility]sc[facility] [place]. In the past she has been followed by Yash Gandhi MD. She underwent an elective transsphenoidal resection in 2011 and developed secondary hypothyroidism and adrenal insufficiency. At that time she presented with left eye blindness, and changing right eye vision. She also developed cognitive deficits and over the years had gradually progressive memory loss. She was seen in her primary care provider clinic several times. 2016 for the cognitive deficits. And then in November 2018 daughter also took her in for cognitive deficits. Mini-Mental status exam was done. She was not able to count backwards by serial sevens and she could only recall 2 out of 3 objects after a lapse of 2 minutes. She lived in her own apartment with occasional roommates in subsidized housing, but had hired staff that came by to help take care of her once or twice a week, mainly to clean her apartment. She had a special education case manager and social work nurse that also checked in. Not only with her but with the PCP office. By 2020 she was forgetting to make her appointments. And by 2022 was a no-show for several visits and blood draws. She has been admitted to our hospital once. It was associated with COVID, NSTEMI, and altered mental status in 2022. She is also been seen in the emergency room when she would become ill. Forgot to take her medicine and had minor adrenal insufficiency. [place]. Shawnee Mckeon is active duty [place]. Shawnee is in [place] right now. Her number is [phone]. But she has a daughter in [place] who is her POA and DPOA for now. Daughter is Carla Mckeon and her number is [phone]. She also has a son in [place] named Anders and his number is [phone]. I was able to speak to Carla sunshine. She does not remember who her mom's primary care provider is now. But mom's vision was getting worse. The good eye was starting to lose his vision and she is closely followed up by . [facility] felt that her macroadenoma was getting bigger and needed a second resection. So that was resected on November 30, 2024. She has subsequently been discharged from December 14, 2024. She was discharged to go get rehab at [facility]. Currently that provider is Junior Moralez MD. [phone] An ambulance was called to get her this morning. Per EMS they were called because the patient was altered but no one could give the EMS tool grinding technician a good report. They do not remember when she was last normal. They stated that she could not complete her sentences and has not been walking. They describe her as having a left sided facial droop and left fixed pupil but they think that is her baseline. When she got to our emergency room she was alert and oriented x 4. Answering all questions, respiration was even and nonlabored. Skin was warm and dry. She was telling the ER doctor that she did not feel any worse than normal and she denied any headaches. Her blood pressure was 117/55, O2 sat was 98% on room air, she weighed 84 kg. The ER provider did labs and her CMP was normal. CBC had a low white cell count at 4.2. She has a chronic anemia and hemoglobin was 10.4. In 2022 she was 11.0. She did not have a left shift. And platelets were 227. Urinalysis is pending. Toxicology was done for her Dilantin level and that was 38.2. A CT of the head was done and she had a postsurgical change from an interval left craniotomy. Markedly reduced size of the suprasellar mass seen on prior CT from May 18, 2023. There is a residual mass measuring up to 2.1 x 1.6 cm with hyperdense appearance, most compatible with residual pituitary macroadenoma. Although the density raise the possibility of arterial aneurysm or hemorrhagic cyst. Stable size of ventricles. The ER provider called and the films were reviewed with the neurosurgeon according to Dr. Metz. They feel that these are postsurgical changes and not cause for alarm. The ER provider did describe her as having mild nystagmus in the 1 good eye. Intermittent sleepiness. And asked if she should be admitted for altered mental status due to Dilantin toxicity. They did find some tablets in her clothing. They were Dilantin tablets. She is supposed to be taking Dilantin and Keppra. According to the MAR for the jail facility all of her medications were given to her this morning which includes hydrocortisone 10 mg. 1 and half tablets twice a day. Keppra 1000 mg twice daily. Protonix 40 mg daily. Dilantin 50 mg tablets, 4 tablets 3 times a day for seizures. Sodium chloride oral tablet 1 g tablet, 2 tablets 3 times a day. Levothyroxine 75 mcg daily. As I spoke to the patient, one of her friends, July, came to visit her. July shares with me that the patient had her discharge delayed from because the patient began having uncontrolled seizures that resulted in the patient being transferred back to ICU. That delayed her discharge. July states that the patient had been doing well at the jail facility. She was last seen by July December 26. At that time July felt like her friend was stable. The patient is a quiet reserved person but she has a good sense of humor. Interactive conversationalist. Before she had her second surgical resection, it would be nothing for her to get on the mass transit bus and take the bus to wherever she wanted to go. She was doing okay on that Wednesday. July saw her again yesterday on December 28 and there was complete change in the patient. She was sedated, staring blankly, unable to speak. She had a definite new left facial droop that was present yesterday and is still present right now. Since being in the ER today, July feels like her friend is better. She is actually opening her eyes, talking to her, and is responding appropriately to questions but she has psychomotor slowing and still seems like she is "in a fog". Still disoriented to time and occasionally to place. But she recognizes July and is appropriately responsive but monosyllabic in her symptom structure. I will place the patient in observation status. Monitor neurologically. Give her her medications. And we will see how she is doing by tomorrow morning. Meds/Allgy Home Medications Ambulatory Orders Medication Instructions Recorded Confirmed hydrocortisone 5 mg tablet (Cortef) 5 mg PO DAILY PM 05/19/23 12/29/24 levothyroxine 75 mcg tablet 75 mcg PO QDAC 05/19/23 12/29/24 bisacodyl 10 mg rectal suppository 10 mg [place] DAILY PRN constipation 12/29/24 12/29/24 carboxymethylcellulose sodium 1 % 2 drp ophthalmic (eye) 5XD PRN dry 12/29/24 12/29/24 eye liquid gel drops (Refresh eye(s) Liquigel) levetiracetam 1,000 mg tablet 1,000 mg PO BID 12/29/24 12/29/24 (Keppra) mineral oil (Fleet Mineral Oil 118 ml [place] DAILY PRN constipation 12/29/24 12/29/24 enema) naloxone 4 mg/actuation nasal 4 mg intranasal Q2M 12/29/24 12/29/24 spray (Rextovy) oxycodone 5 mg tablet 5 mg PO Q4H PRN pain 12/29/24 12/29/24 pantoprazole 40 mg tablet,delayed 40 mg PO QAM 12/29/24 12/29/24 release phenytoin 50 mg chewable tablet 200 mg TID 12/29/24 sennosides 8.6 mg tablet (Natural 17.2 mg PO DAILY PRN constipation 12/29/24 12/29/24 Senna Laxative) Allergies Allergies Allergy/AdvReac Type Severity Reaction Status Date / Time Sulfa (Sulfonamide Allergy Unknown Verified 12/29/24 10:59 Antibiotics) PFSH Active Problems All Active Problems (Updated 12/29/24 @ 19:00 by Zabrina Lozoya MD) Seizure disorder (Acute) Status post craniotomy (Acute) Dilantin toxicity (Acute) AMS (altered mental status) (Acute) Rhabdomyolysis (Acute) History of adrenal insufficiency (Acute) Chest pain, atypical (Acute) Hypoglycemia (Acute) Weak (Acute) Steroid withdrawal syndrome (Acute) Altered mental status (Acute) Fever (Acute) COVID-19 (Acute) NSTEMI (non-ST elevated myocardial infarction) (Acute) Medical History Medical History (Updated 12/29/24 @ 19:00 by Zabrina Lozoya MD) Pituitary insufficiency Moderate cognitive impairment Has social work nurse case management since approximately 2013. Used to live alone had caregivers. After second pituitary adenoma resection went to live at jail facility December 14, 2024. 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 Reseen 05/2017 bc worse R eye but option was to wait and see since MRI not worse. Normal colonoscopy internal hemorrhoids seen 07/30/2014 Breast tumor age 18 Depression with anxiety Hypothyroid due to pituitary adenoma resection 2011. Surgical History Surgical History (Updated 12/29/24 @ 17:14 by Zabrina Lozoya MD) Status post transsphenoidal pituitary resection 2011. Family History Family History (Updated 12/29/24 @ 18:10 by Zabrina Lozoya MD) Father Well adult exam Mother Cancer Brother High blood pressure Daughter Well adult exam Daughter Well adult exam Son Well adult exam Social History Social History (Updated 12/29/24 @ 17:05 by Zabrina Lozoya MD) Smoking Status: Never smoker Second hand tobacco smoke exposure: No Do you dip or chew tobacco?: No Do you vape?: No Living arrangement: At home Marital Status: Single Living Condition: Alone More Information: now in SNF since craniotomy 11/2024. prior lived alone w visiting caregivers Relationship: Level: Assisted Do you feel safe in your home environment?: No Suffered physical, verbal, emotional, or financial abuse?: No History of Abuse: No POLST Patient has POLST: No POLST Status: Full Code Review of Systems Status of ROS: unobtainable due to mental status Prior Level of Functionality: Before her second pituitary resection, patient was described as ambulatory. Occasionally needing a walker. But getting on the [employer] transit buses on her own. Going out to lunch or dinner with friends. Needed help in the apartment with housekeeping but that was what the caregiver was for. She was able to feed herself, dress herself, but relied on friends and daughter to do bill pain. Exam Exam Vital Signs: Vital Signs x48h Temp Pulse Pulse Resp BP BP Pulse Ox 12/29/24 15:18 36.6 C 64 18 117/55 L 98 12/29/24 14:58 60 20 114/81 99 12/29/24 12:54 65 18 104/53 L 95 12/29/24 10:47 36.7 C 94 15 111/62 98 5 foot 3 inch black female, 84 kg. Eyes open, looking at July and follows me. Follows my commands. But is essentially monosyllabic. July states she is not at baseline from even last Wednesday. Constitutional no apparent distress HENMT head/scalp traumatic (Scalp lesion closed, healing.), hearing grossly normal bilaterally and oral mucous membranes normal Eating dinner but has to be fed. No dysphagia. I really cannot tell about speech since she is just staring at me, and will nod head yes or no. Eyes visual chinchilla abnormal by confrontation (Described as having a left partial visual field loss dating to before 2011) Left eyelid droop. Pupil is reactive.When I ask which eye is blind, the patient herself points to her left eye. Lymph no lymphadenopathy noted Chest palpation of chest normal Respiratory breath sounds equal bilaterally, normal respiratory effort and clear to auscultation bilaterally Cardiovascular normal heart rate noted, regular rhythm noted and no murmur Gastrointestinal abdomen normal to inspection, abdomen soft to palpation, nontender to palpation and nontender to percussion Back/Pelvis spine normal to inspection Extremities normal to palpation, no tenderness, full ROM and no joint enlargement No edema. Neurology cranial nerve findings as noted:, speech abnormality noted, coordination abnormality noted, no pronator drift noted and no fasciculations noted Left facial droop. Follows my commands and moves both arms and legs and lifts them up against the bed and against my pressure. Mute. Psychomotor slowing. Psychiatry cooperative, psychomotor abnormality noted and memory abnormal Skin skin color normal, no rash and skin turgor normal Warm Conclusion/Plan Problem List (1) AMS (altered mental status): Plan: Differential diagnosis and altered mental status includes infection, stroke, metabolic derangement, drug intoxication of some type. She has mild Dilantin toxicity. She could have adrenal insufficiency that is mild. The new left facial droop is definitely new according to her friend. However CT does not show any new infarcts. Plan: place in OBV I am calling [facility] about Left facial droop. The ER provider does note that she had an somnolent mental status with disorientation to time but felt that her thought process was normal and psychomotor activity was normal. He also felt that she did not have a motor deficit. He did document a horizontal nystagmus. But I am seeing a left facial droop and her friend documents that this facial droop was present yesterday into today. I have called back [facility]. The transfer center states that Dr. Metz from the ER did speak to Dr. Mikael Sanz. I have left my name and number and asked him the give me a call at his convenience. I will make sure that she gets her steroids, salt, and thyroid medication in the face of a person who is very dependent on supplementation from pituitary insufficiency. I need to consider giving her a statin and an aspirin if she has had a stroke that the CT is not finding. Qualifiers: Altered mental status type: stupor Qualified Code(s): R40.1 - Stupor (2) Dilantin toxicity: Plan: Goal for Dilantin is to be 20 or below. This patient is 40. While she is technically toxic with Dilantin, and has horizontal nystagmus according to Dr. Metz, I usually find obtundation or sedation at much higher levels. I will hold her Dilantin dosing for 2 more doses and then resume tomorrow morning. Qualifiers: Encounter type: initial encounter Injury intent: accidental or unintentional Qualified Code(s): T42.0X1A - Poisoning by hydantoin derivatives, accidental (unintentional), initial encounter (3) Pituitary insufficiency: Plan: She has secondary pituitary insufficiency due to the pituitary gland resection. I will make sure that she gets hydrocortisone 10 mg tablet, 1and 1/2 tablets twice a day. Sodium chloride tablet 1 g, 2 tablets 3 times a day. Levothyroxine 75 mcg daily. Tomorrow morning I am going to check a cortisol level and also check free T4. (4) Seizure disorder: Plan: The seizure disorder is new. It developed postoperatively and delayed her discharge from [facility]. Her friend July states that she was in the ICU for a couple of days as they tried to control her seizures. I am reducing her Dilantin level to 150 mg 3 times a day from the 200 mg 3 times a day since she is technically Dilantin toxic. But I will resume her Keppra 1000 mg twice daily. (5) Moderate cognitive impairment: Plan: Has been slowly getting worse since her 2012 resection. Spoke to Carla, her daughter, today and Carla states that mom has been holding her own. She is still living alone. Carla also states that I am not to discuss the patient with her brother Anders. Unfortunately, we do not have occupational therapy or physical therapy December 30. But we will have physical therapy December 31. I do not know if the patient will still be here December 31 but if she is here, I will have them evaluate her. Lab Results Lab results reviewed: Yes 12/29/24 11:09 12/29/24 11:09 Core Measures Anticipated LOS I expect patient to be DC'd or transferred within 96 hours.: Yes DVT/VTE - Prophylaxis VTE/DVT Device ordered at admit?: No VTE/DVT Prophylaxis med ordered at admit?: Yes
[2024-12-29 18:02] LABS: BILIRUBIN,URINE NEGATIVE (NEGATIVE); GLUCOSE, URINE (UA) NEGATIVE (NEGATIVE); KETONES,URINE (UA) NEGATIVE (NEGATIVE); LEUKOCYTE ESTERASE, URINE NEGATIVE (NEGATIVE); NITRITE,URINE NEGATIVE (NEGATIVE); OCCULT BLOOD,URINE SMALL (NEGATIVE); PH,URINE 7.5 PH (5.0-7.5); PROTEIN,URINE NEGATIVE (NEGATIVE); UROBILINOGEN,URINE 0.2 (NORMAL) E.U./dL (NORMAL)
--- NOTE | 2024-12-29 18:19 | PHARMACY PROGRESS NOTE ---
Best Possible Medication History Admit Date and Time: 12/29/24 [id number] Home Medications Medication Instructions Recorded Confirmed Type hydrocortisone 5 mg tablet (Cortef) 5 mg PO DAILY PM 05/19/23 12/29/24 History levothyroxine 75 mcg tablet 75 mcg PO QDAC 05/19/23 12/29/24 History bisacodyl 10 mg rectal suppository 10 mg [place] DAILY PRN constipation 12/29/24 12/29/24 History carboxymethylcellulose sodium 1 % 2 drp ophthalmic (eye) 5XD PRN dry 12/29/24 12/29/24 History eye liquid gel drops (Refresh eye(s) Liquigel) levetiracetam 1,000 mg tablet 1,000 mg PO BID 12/29/24 12/29/24 History (Keppra) mineral oil (Fleet Mineral Oil 118 ml [place] DAILY PRN constipation 12/29/24 12/29/24 History enema) naloxone 4 mg/actuation nasal 4 mg intranasal Q2M 12/29/24 12/29/24 History spray (Rextovy) oxycodone 5 mg tablet 5 mg PO Q4H PRN pain 12/29/24 12/29/24 History pantoprazole 40 mg tablet,delayed 40 mg PO QAM 12/29/24 12/29/24 History release phenytoin 50 mg chewable tablet 200 mg TID 12/29/24 History sennosides 8.6 mg tablet (Natural 17.2 mg PO DAILY PRN constipation 12/29/24 12/29/24 History Senna Laxative) Processed by: Pharmacy Medications reviewed in ED?: No Medication History completed: Yes Patient Interview: Completed Secondary Source(s): Written medication list, Caregiver and Insurance records [facility] Statement: Per pharmacist interview, review of [employer] insurance records, and discharge summary from [facility]. As the person ultimately responsible for medication therapy, providers are able to order a medication from an existing home medication list in [facility] via the "Reconcile Routine" prior to Confirmation of that medication by student support counselor. Such practice is discouraged except when the physician, in their clinical judgment, deems that a medical need exists for a medication without regard to previous use.
[2024-12-29 18:22] LABS: BACTERIA,URINE None Seen /HPF (None Seen); CLARITY,URINE CLEAR (CLEAR); SQUAMOUS EPITHELIAL CELL,UR RARE Squamous (<= Few); WBC,URINE 0-3 /HPF (0-5)
[2024-12-29 18:23] LABS: AMPHETAMINE SCREEN,URINE NEGATIVE (NEGATIVE); BARBITURATE SCREEN,UR POSITIVE (NEGATIVE); BENZODIAZEPINES SCREEN, URINE NEGATIVE (NEGATIVE); BUPRENORPHINE SCREEN, URINE NEGATIVE (NEGATIVE); COCAINE SCREEN URINE NEGATIVE (NEGATIVE); METHADONE SCREEN, URINE NEGATIVE (NEGATIVE); METHAMPHETAMINES SCREEN, URINE NEGATIVE (NEGATIVE); OPIATE SCREEN, URINE NEGATIVE (NEGATIVE); OXYCODONE SCREEN, URINE NEGATIVE (NEGATIVE); THC CANNABINOID SCREEN, URINE NEGATIVE (NEGATIVE); TRICYCLIC ANTIDEPRESSANT,URINE NEGATIVE (NEGATIVE)
[2024-12-29] MEDS ORDERED: CARBOXYMETHYLCELLULOSE OPHTH DROPS EACHEYE PRN (18:46)
[2024-12-29] MEDS: PANTOPRAZOLE 40 MG TABLET PO SCH (19:35)
[2024-12-29] MEDS: LEVOTHYROXINE 75 MCG TABLET PO SCH (19:35)
[2024-12-29 21:12] VITALS: BP 112/73; TEMP 97.7
[2024-12-29] MEDS: HYDROCORTISONE 10 MG TABLET PO SCH (22:41)
[2024-12-29] MEDS: SODIUM CHLORIDE 1 GM TABLET PO SCH (22:42)
[2024-12-29] MEDS: levETIRAcetam 250 MG TABLET PO SCH (22:42)
[2024-12-30] MEDS ORDERED: ENOXAPARIN 40 MG/0.4 ML SYRINGE SUBQ SCH (09:00)
[2024-12-30] MEDS ORDERED: PHENYTOIN CHEW 50 MG TABLET PO SCH (10:00)
--- NOTE | 2025-01-25 11:30 | XRAY Report ---
PROCEDURE: Chest 1 View INDICATIONS: AMS TECHNIQUE: 2 view(s) of the chest. COMPARISON: 05/18/2023. FINDINGS: Surgical changes and devices: None. Lungs and pleura: No pleural effusions or pneumothorax. Lungs are clear. Mediastinum: Mediastinal contours appear normal. Heart size is normal. Bones and chest wall: No suspicious bony lesions. Overlying soft tissues appear unremarkable. IMPRESSION: No acute cardiopulmonary process. Reviewed by: Angel Sampson MD on 12/29/2024 3:37 PM PDT Approved by: Angel Sampson MD on 12/29/2024 3:37 PM PDT Station ID: [id number]
--- NOTE | 2025-02-02 08:54 | Discharge Summary ---
"Discharge Summary Admit Date: 12/29/24 Discharge Date: 01/28/25 Discharging Provider: Zabrina Lozoya MD Primary Care Provider: PEACE Lai Code Status: Attempt Resuscitation Discharge Facility Name: [facility] DIAGNOSES Discharge Diagnoses with Status of Each Condition: 1. Altered mental status 2. New left facial droop 3. Dilantin toxicity 4. Secondary pituitary insufficiency with history of pituitary gland resection 5. Seizure disorder history 6. Moderate cognitive impairment HPI History of Present Illness: Patient was in the hospital less than 12 hours, please see the dictated history and physical CONSULTS | PROCEDURES Procedures: 1. Head CT with postsurgical changes from interval left craniotomy. Markedly reduced size of suprasellar mass seen on prior CT. Residual mass is seen measuring up to 2.1 x 1.6 cm with hyperdense appearance, most compatible with residual pituitary macroadenoma although the density raises the possibility of arterial aneurysm or hemorrhagic cyst. 2. Chest x-ray without acute cardiopulmonary process HOSPITAL COURSE Hospital Course: The patient was admitted as altered mental status after discussion with the emergency room provider. However there was discordance between the emergency room provider exam and my exam upon admission. The patient had a new left facial droop that had been present for 48 hours according to family. This had not been discussed with the [facility] surgeon on-call. When I discussed the new left facial droop, they felt the patient would warrant evaluation at a higher level of care. As such the patient was accepted in transfer. At discharge temperature was 36.5, pulse rate 68, respirations 18, 98% O2 sat on room air. And a blood pressure of 112/73. There is no change in physical exam from admitting physical exam. Greater than 30 minutes was spent coordinating transfer to a higher level of care. This document was made in part using voice recognition software. While efforts are made to proofread this document, sound alike and grammatical errors may occur. ALLERGIES Allergies Allergy/AdvReac Type Severity Reaction Status Date / Time Sulfa (Sulfonamide Allergy Unknown Verified 12/29/24 10:59 Antibiotics) MEDICATIONS Ambulatory Orders Medication Instructions Recorded Confirmed hydrocortisone 5 mg tablet (Cortef) 5 mg PO DAILY PM 0 05/19/23 12/29/24 levothyroxine 75 mcg tablet 75 mcg PO QDAC 05/19/23 bisacodyl 10 mg rectal suppository 10 mg [place] DAILY PRN constipation 12/29/24 12/29/24 carboxymethylcellulose sodium 1 % 2 drp ophthalmic (ey e) 5XD PRN dry 12/29/24 12/29/24 eye liquid gel drops (Refresh eye(s) Liquigel) levetiracetam 1,000 mg tablet 1,000 mg PO BID 12/29/24 12/29/24 (Keppra) mineral oil (Fleet Mineral Oil 118 ml [place] DAILY PRN con stipation 12/29/24 12/29/24 enema) naloxone 4 mg/actuation nasal 4 mg intranasal Q2M 12/1912/29/24 spray (Rextovy) oxycodone 5 mg tablet 5 mg PO Q4H PRN pain 5 12/29/24 pantoprazole 40 mg tablet,delayed 40 mg PO QAM 5 12/29/24 release phenytoin 50 mg chewable tablet 200 mg TID 12/29/24 sennosides 8.6 mg tablet (Natural 17.2 mg PO DAILY PRN constipation 12/29/24 12/29/24 Senna Laxative) LABS 12/29/24 11:09 12/29/24 11:09 Discharge Plan Discharge Patient Disposition: 02 Transfer Acute Care Hosp Condition: Stable Medically Cleared Date:: 12/29/24 Prescriptions: No Action levothyroxine 75 MCG tablet 75 mcg PO QDAC hydrocortisone [Cortef] 5 MG tablet 5 mg PO DAILY PM Patient Comments: TAKE 2 TABLETS BY MOUTH IN THE MORNING AND 1 TABLET IN THE EVENING oxycodone 5 mg tablet 5 mg PO Q4H PRN (Reason: pain) sennosides [Natural Senna Laxative] 8.6 mg tablet 17.2 mg PO DAILY PRN (Reason: constipation) Rx Instructions: to be taken prn on Day#4 with no BM levetiracetam [Keppra] 1,000 mg tablet 1,000 mg PO BID Rx Instructions: am and hs pantoprazole 40 mg tablet,delayed release (DR/EC) 40 mg PO QAM phenytoin 50 mg tablet,chewable 200 mg TID Rx Instructions: chew tabs bisacodyl 10 mg suppository 10 mg [place] DAILY PRN (Reason: constipation) Rx Instructions: prn for constipation on Day#5 of no BM mineral oil [Fleet Mineral Oil] Enema 118 ml [place] DAILY PRN (Reason: constipation) Rx Instructions: prn on Day#6 of No BM naloxone [Rextovy] 4 mg/actuation spray,non-aerosol 4 mg intranasal Q2M Rx Instructions: spray 1 dose into ONE nostril; alternate nostrils w each dose until help arrives carboxymethylcellulose sodium [Refresh Liquigel] 1 % drops, liquid gel 2 drp ophthalmic (eye) 5XD PRN (Reason: dry eye(s)) Print Language: Swedish Follow-up Care: Kayy Avila ARNP [Primary Care Provider] -"
== END 2024-12-29 22:40 | disposition short-term general hospital (02) ==
LOC: ED 10:47 → MS2 10:47
PROVIDERS: ADMIT Specialist; ATTEND Specialist
DX: R41.89 Other symptoms and signs involving cognitive functions and awareness; E89.0 Postprocedural hypothyroidism; E27.40 Unspecified adrenocortical insufficiency; Z79.890 Hormone replacement therapy; Z79.899 Other long term (current) drug therapy; R41.82 Altered mental status, unspecified; G40.909 Epilepsy, unspecified, not intractable, without status epilepticus; R29.810 Facial weakness; E78.5 Hyperlipidemia, unspecified; H55.00 Unspecified nystagmus; E89.3 Postprocedural hypopituitarism; T42.0X1A Poisoning by hydantoin derivatives, accidental (unintentional), initial encounter; D64.9 Anemia, unspecified